=== PATIENT | female | born 1950 | race Caucasian/White ===

== ENCOUNTER 2016-12-05 09:59 | Outpatient (CLI) | payer MEDICARE | END 2016-12-05 10:00 | disposition home or self-care (01) | DX: Z79.4 Long term (current) use of insulin (principal); E78.00 Pure hypercholesterolemia, unspecified; E11.9 Type 2 diabetes mellitus without complications ==

== ENCOUNTER 2016-12-26 08:01 | Outpatient (CLI) | payer MEDICARE | END 2016-12-26 08:02 | disposition home or self-care (01) | DX: M89.9 Disorder of bone, unspecified (principal) ==

== ENCOUNTER 2017-01-11 10:58 | Outpatient (CLI) | payer MEDICARE | END 2017-01-11 10:59 | disposition home or self-care (01) | DX: Z12.31 Encounter for screening mammogram for malignant neoplasm of breast (principal) ==

== ENCOUNTER 2017-03-27 08:44 | Outpatient (CLI) | payer MEDICARE ==
[2017-03-27 15:09] LABS: BASOPHILS % (AUTO) 0.5 %; EOSINOPHILS # (AUTO) 0.2 10^3/uL (0.0-0.7); EOSINOPHILS % (AUTO) 3.1 %; HCT - HEMATOCRIT 38.7 % (37.0-47.0); LYMPHOCYTES # (AUTO) 2.9 10^3/uL (1.5-3.5); LYMPHOCYTES % (AUTO) 41.6 %; MEAN CORPUSCULAR HEMOGLOBIN 28.8 pg (27.0-31.0); MEAN CORPUSCULAR HGB CONC 33.7 g/dL (32.0-36.0); MEAN CORPUSCULAR VOLUME 85.5 fL (81.0-99.0); MONOCYTES # (AUTO) 0.4 10^3/uL (0.0-1.0); MONOCYTES % (AUTO) 5.5 %; NEUTROPHILS # (AUTO) 3.4 10^3/uL (1.5-6.6); NEUTROPHILS % (AUTO) 49.3 %; RED BLOOD COUNT 4.53 10^6/uL (4.20-5.40)
[2017-03-27 16:25] LABS: ALBUMIN/GLOBULIN RATIO 1.1 (1.0-2.2); BILIRUBIN,TOTAL 0.6 mg/dL (0.2-1.0); BUN - BLOOD UREA NITROGEN 13 mg/dL (6-20); CALCIUM 8.9 mg/dL (8.5-10.3); CARBON DIOXIDE - CO2 23 mmol/L (21-32); CHLORIDE 107 mmol/L (101-111); CHOL/HDL RATIO 4.3 (<4.4); CHOLESTEROL 160 mg/dL; CREATININE 0.9 mg/dL (0.4-1.0); GFR - MDRD 62 (>89); GLUCOSE 166 mg/dL (70-100); HDL CHOLESTEROL 37 mg/dL; LDL/HDL RATIO 2.1 (<4.4); POTASSIUM 3.8 mmol/L (3.5-5.0); SODIUM 140 mmol/L (135-145); TOTAL PROTEIN 7.3 g/dL (6.7-8.2); TRIGLYCERIDES 220 mg/dL; URIC ACID 6.6 mg/dL (2.6-7.2); VLDL CHOLESTEROL 44 mg/dL
[2017-03-27 16:31] LABS: HEMOGLOBIN A1C 0.87 g/dL
== END 2017-03-27 08:45 | disposition home or self-care (01) ==
LOC: LAB.WCP 08:44
PROVIDERS: ATTEND Physician Assistant Medical
DX: Z51.81 Encounter for therapeutic drug level monitoring (principal)
CPT/HCPCS: 36415; 80053; 80061; 82043; 83036; 84443; 84550; 85025

== ENCOUNTER 2017-06-01 09:30 | Outpatient (CLI) | payer MEDICARE ==
[2017-06-01 13:13] VITALS: BP 142/78
--- NOTE | 2017-06-01 14:18 | Nuclear Medicine Report ---
EXAM: SINGLE-ISOTOPE PHARMACOLOGICAL STRESS TEST WITH REGADENOSON. SINGLE-ISOTOPE AND ONE-DAY rest/stress M YOCARDIAL PERFUSION SCANS WITH TOMOGRAPHIC IMAGING, QUANTITATIVE ANALYSIS, WALL MOTION ANALYSIS AND C ALCULATION OF EJECTION FRACTION. EXAM DATE: 06/01/2017 11:04 AM. CLINICAL HISTORY: ARRHYTHMIA. COMPARISON: None. TECHNIQUE: After the intravenous administration of 9.8 mCi of Tc-99m sestamibi, a rest myocardial perfusion scan was done with tomography. Motion correction was applied when appropriate. A pharmacological stress was performed with the infusion of 0.4 mg regadenoson per protocol. Accordin g to protocol, 41.8 mCi of Tc-99m sestamibi was injected for stress myocardial perfusion scan. Motion correction was applied when appropriate. Gated tomographic images were obtained for wall motion analysis and computation of left ventricular e jection fraction. FINDINGS: No fixed or reversible perfusion defects are identified. No focal wall motion abnormalities. The left ventricular end-diastolic volume is 83 cc. The left ventricular end-systolic volume is 31 cc . The left ventricular ejection fraction is calculated to be 62%. IMPRESSION: 1. No scintigraphic findings to indicate myocardial ischemia. Negative for infarct. 2. Left ventricular ejection fraction of 62%. 3. Normal segmental and global wall motion. 4. Normal left ventricular cavity size, no change with stress. [facility] Referring Provider Line: [phone] SITE ID: [id number]
--- NOTE | 2017-06-01 15:11 | CARDIAC PROCEDURE NOTE ---
DATE OF SERVICE: 06/01/2017 00:00:00 PRIMARY CARE PHYSICIAN: Jeanine Rodriguez PA-C PROCEDURE: Pharmacological stress test. PROCEDURE REASON: Arrhythmia. CARDIAC RISK FACTORS: Include age, hypertension, diabetes and hyperlipidemia. No previous cardiac pro cedures. CLINICAL HISTORY: A 67-year-old female without known coronary artery disease. INITIAL RESTING VITAL SIGNS: Blood pressure 142/78, heart rate 58, height 62 inches, weight 203 pound s, BMI 37.1. PROCEDURE AND FINDINGS: The patient's identity and date verified. Consent signed. Safety stop. Pharmacologic stress testing was performed with Lexiscan at a dose of 0.4 mg over 10 seconds. The hea rt rate increased to 91 beats per minute from the infusion. Blood pressure response was normal during the stress procedure. The patient developed infusion related symptoms including chest pressure that resolved spontaneously. The resting electrocardiogram demonstrated normal sinus rhythm with nondiagno stic Q waves in the inferior leads. Maximum ST segment depression with stress was less than 0.5 mm an d upsloping. There was intermittent quadrigeminy. FINAL IMPRESSION 1. Negative electrocardiogram for ischemia in the setting of vasodilator stress. 2. Nondiagnostic stress test for angina. 3. Intermittent quadrigeminy. DISCUSSION AND RECOMMENDATIONS: Await myocardial perfusion report. JOB #: [id number] EXT JOB #:[id number]
== END 2017-06-01 09:31 | disposition home or self-care (01) ==
LOC: DI 09:30
PROVIDERS: ATTEND Family Medicine
DX: I49.9 Cardiac arrhythmia, unspecified (principal)
CPT/HCPCS: 78452; 93017; A9500

== ENCOUNTER 2017-06-21 12:43 | Outpatient (CLI) | payer MEDICARE ==
[2017-06-21 19:37] LABS: HEMOGLOBIN A1C 0.97 g/dL
[2017-06-21 19:45] LABS: ALBUMIN/GLOBULIN RATIO 1.1 (1.0-2.2); BILIRUBIN,TOTAL 0.7 mg/dL (0.2-1.0); BUN - BLOOD UREA NITROGEN 14 mg/dL (6-20); CALCIUM 9.4 mg/dL (8.5-10.3); CARBON DIOXIDE - CO2 23 mmol/L (21-32); CHLORIDE 109 mmol/L (101-111); CHOL/HDL RATIO 4.7 (<4.4); CHOLESTEROL 202 mg/dL; CREATININE 0.9 mg/dL (0.4-1.0); GFR - MDRD 62 (>89); GLUCOSE 122 mg/dL (70-100); HDL CHOLESTEROL 43 mg/dL; LDL/HDL RATIO 2.6 (<4.4); SODIUM 139 mmol/L (135-145); TOTAL PROTEIN 7.9 g/dL (6.7-8.2); TRIGLYCERIDES 231 mg/dL; VLDL CHOLESTEROL 46 mg/dL
== END 2017-06-21 12:44 | disposition home or self-care (01) ==
LOC: LAB.WCP 12:43
PROVIDERS: ATTEND Physician Assistant Medical
DX: E78.00 Pure hypercholesterolemia, unspecified (principal); Z51.81 Encounter for therapeutic drug level monitoring; Z79.899 Other long term (current) drug therapy; E11.9 Type 2 diabetes mellitus without complications
CPT/HCPCS: 36415; 80053; 80061; 83036

== ENCOUNTER 2017-06-29 11:40 | Outpatient (CLI) | payer MEDICARE ==
[2017-06-29 20:07] LABS: CALCIUM 9.3 mg/dL (8.5-10.3); MAGNESIUM 1.8 mg/dL (1.7-2.8); POTASSIUM 4.2 mmol/L (3.5-5.0)
== END 2017-06-29 11:41 | disposition home or self-care (01) ==
LOC: LAB.WCP 11:40
PROVIDERS: ATTEND Physician Assistant Medical
DX: Z51.81 Encounter for therapeutic drug level monitoring (principal); Z79.899 Other long term (current) drug therapy; R25.2 Cramp and spasm
CPT/HCPCS: 36415; 80048; 83735

== ENCOUNTER 2017-07-28 13:05 | Outpatient (CLI) | payer MEDICARE | END 2017-07-28 13:06 | disposition home or self-care (01) | LOC: LAB.WCP 13:05 | PROVIDERS: ATTEND Physician Assistant Medical | DX: Z11.59 Encounter for screening for other viral diseases (principal) | CPT/HCPCS: 36415; 86803 ==

== ENCOUNTER 2017-11-07 08:31 | Outpatient (CLI) | payer MEDICARE ==
[2017-11-07 13:20] LABS: HB2 TOTAL 14.1 g/dL; HEMOGLOBIN A1C 1.39 g/dL; HEMOGLOBIN A1C % 11.2 % (4.6-6.2)
[2017-11-07 13:27] LABS: ALBUMIN 3.7 g/dL (3.2-5.5); ALBUMIN/GLOBULIN RATIO 1.1 (1.0-2.2); ALKALINE PHOSPHATASE 83 IU/L (42-121); ALT ALANINE AMINOTRANSFERASE 19 IU/L (10-60); AST ASPARTATE AMINOTRANSFERASE 20 IU/L (10-42); BILIRUBIN,TOTAL 0.7 mg/dL (0.2-1.0); BUN - BLOOD UREA NITROGEN 13 mg/dL (6-20); CALCIUM 8.7 mg/dL (8.5-10.3); CARBON DIOXIDE - CO2 22 mmol/L (21-32); CHLORIDE 106 mmol/L (101-111); CHOL/HDL RATIO 4.6 (<4.4); CHOLESTEROL 183 mg/dL; CREATININE 0.7 mg/dL (0.4-1.0); GFR - MDRD 83 (>89); GLUCOSE 177 mg/dL (70-100); HDL CHOLESTEROL 40 mg/dL; LDL CHOLESTEROL,CALCULATED 101 mg/dL; LDL/HDL RATIO 2.5 (<4.4); SODIUM 136 mmol/L (135-145); TOTAL PROTEIN 7.2 g/dL (6.7-8.2); VLDL CHOLESTEROL 42 mg/dL
== END 2017-11-07 08:32 | disposition home or self-care (01) ==
LOC: LAB.WCP 08:31
PROVIDERS: ATTEND Physician Assistant Medical
DX: E11.9 Type 2 diabetes mellitus without complications (principal); Z51.81 Encounter for therapeutic drug level monitoring; Z79.899 Other long term (current) drug therapy
CPT/HCPCS: 36415; 80053; 80061; 83036; 83721

== ENCOUNTER 2018-02-06 08:00 | Outpatient (CLI) | payer MEDICARE ==
[2018-02-06 12:49] LABS: HB2 TOTAL 14.6 g/dL; HEMOGLOBIN A1C 1.46 g/dL; HEMOGLOBIN A1C % 11.3 % (4.6-6.2)
[2018-02-06 12:51] LABS: ALBUMIN 3.8 g/dL (3.2-5.5); ALBUMIN/GLOBULIN RATIO 1.1 (1.0-2.2); ALKALINE PHOSPHATASE 90 IU/L (42-121); ALT ALANINE AMINOTRANSFERASE 20 IU/L (10-60); AST ASPARTATE AMINOTRANSFERASE 26 IU/L (10-42); BILIRUBIN,TOTAL 0.9 mg/dL (0.2-1.0); BUN - BLOOD UREA NITROGEN 13 mg/dL (6-20); CARBON DIOXIDE - CO2 23 mmol/L (21-32); CHLORIDE 103 mmol/L (101-111); CHOLESTEROL 139 mg/dL; CREATININE 0.8 mg/dL (0.4-1.0); GFR - MDRD 71 (>89); GLUCOSE 236 mg/dL (70-100); HDL CHOLESTEROL 35 mg/dL; LDL CHOLESTEROL,CALCULATED 59 mg/dL; LDL/HDL RATIO 1.7 (<4.4); SODIUM 135 mmol/L (135-145); TOTAL PROTEIN 7.3 g/dL (6.7-8.2); VLDL CHOLESTEROL 45 mg/dL
== END 2018-02-06 08:01 | disposition home or self-care (01) ==
LOC: LAB.WCP 08:00
PROVIDERS: ATTEND Family Medicine
DX: E78.5 Hyperlipidemia, unspecified (principal); Z51.81 Encounter for therapeutic drug level monitoring; Z79.899 Other long term (current) drug therapy; E11.9 Type 2 diabetes mellitus without complications
CPT/HCPCS: 36415; 80053; 80061; 83036; 83721

== ENCOUNTER 2018-06-14 11:14 | Outpatient (CLI) | payer MEDICARE | END 2018-06-14 11:15 | disposition home or self-care (01) | LOC: NS 11:14 | PROVIDERS: ATTEND Family Medicine | DX: Z71.3 Dietary counseling and surveillance (principal); E11.9 Type 2 diabetes mellitus without complications; E78.5 Hyperlipidemia, unspecified ==

== ENCOUNTER 2018-06-21 09:41 | Outpatient (CLI) | payer MEDICARE | END 2018-06-21 09:42 | disposition home or self-care (01) | LOC: NS 09:41 | PROVIDERS: ATTEND Family Medicine | DX: Z71.3 Dietary counseling and surveillance (principal); E11.9 Type 2 diabetes mellitus without complications; E78.5 Hyperlipidemia, unspecified; Z68.38 Body mass index [BMI] 38.0-38.9, adult | CPT/HCPCS: 97802 ==

== ENCOUNTER 2018-08-28 08:00 | Outpatient (CLI) | payer MEDICARE ==
[2018-08-28 19:49] LABS: BASOPHILS % (AUTO) 0.6 %; EOSINOPHILS # (AUTO) 0.2 10^3/uL (0.0-0.7); EOSINOPHILS % (AUTO) 2.5 %; HGB - HEMOGLOBIN 13.2 g/dL (12.0-16.0); LYMPHOCYTES # (AUTO) 2.8 10^3/uL (1.5-3.5); LYMPHOCYTES % (AUTO) 41.7 %; MEAN CORPUSCULAR HEMOGLOBIN 28.5 pg (27.0-31.0); MEAN CORPUSCULAR HGB CONC 32.6 g/dL (32.0-36.0); MEAN CORPUSCULAR VOLUME 87.4 fL (81.0-99.0); MEAN PLATELET VOLUME 8.8 fL (7.9-10.8); MONOCYTES # (AUTO) 0.4 10^3/uL (0.0-1.0); MONOCYTES % (AUTO) 5.2 %; NEUTROPHILS # (AUTO) 3.4 10^3/uL (1.5-6.6); PLT - PLATELET COUNT 253 10^3/uL (130-450); RED BLOOD COUNT 4.64 10^6/uL (4.20-5.40); RED CELL DISTRIBUTION WIDTH 15.2 % (12.0-15.0); WHITE BLOOD COUNT 6.8 x10^3/uL (4.8-10.8)
[2018-08-28 20:24] LABS: ALBUMIN 3.8 g/dL (3.2-5.5); ALKALINE PHOSPHATASE 116 IU/L (42-121); ALT ALANINE AMINOTRANSFERASE 18 IU/L (10-60); AST ASPARTATE AMINOTRANSFERASE 19 IU/L (10-42); BILIRUBIN,TOTAL 0.6 mg/dL (0.2-1.0); BUN - BLOOD UREA NITROGEN 15 mg/dL (6-20); CALCIUM 8.9 mg/dL (8.5-10.3); CARBON DIOXIDE - CO2 27 mmol/L (21-32); CHLORIDE 105 mmol/L (101-111); CHOL/HDL RATIO 4.9 (<4.4); CHOLESTEROL 188 mg/dL; CREATININE 0.9 mg/dL (0.4-1.0); GFR - MDRD 62 (>89); GLUCOSE 199 mg/dL (70-100); HDL CHOLESTEROL 38 mg/dL; LDL CHOLESTEROL,CALCULATED 105 mg/dL; LDL/HDL RATIO 2.8 (<4.4); SODIUM 137 mmol/L (135-145); TOTAL PROTEIN 7.5 g/dL (6.7-8.2); VLDL CHOLESTEROL 45 mg/dL
[2018-08-28 20:29] LABS: HB2 TOTAL 13.9 g/dL; HEMOGLOBIN A1C 1.13 g/dL; HEMOGLOBIN A1C % 9.6 % (4.6-6.2)
== END 2018-08-28 23:59 | disposition home or self-care (01) ==
LOC: LAB.WCP 08:00
PROVIDERS: ATTEND Family Medicine
DX: I10 Essential (primary) hypertension (principal); E78.5 Hyperlipidemia, unspecified; E11.9 Type 2 diabetes mellitus without complications
CPT/HCPCS: 36415; 80053; 80061; 82043; 83036; 83721; 85025

== ENCOUNTER 2018-11-13 09:44 | Outpatient (CLI) | payer MEDICARE ==
[2018-11-13 12:54] LABS: BASOPHILS % (AUTO) 0.6 %; EOSINOPHILS # (AUTO) 0.2 10^3/uL (0.0-0.7); EOSINOPHILS % (AUTO) 2.7 %; HGB - HEMOGLOBIN 12.5 g/dL (12.0-16.0); LYMPHOCYTES # (AUTO) 2.2 10^3/uL (1.5-3.5); LYMPHOCYTES % (AUTO) 39.8 %; MEAN CORPUSCULAR HEMOGLOBIN 29.9 pg (27.0-31.0); MEAN CORPUSCULAR HGB CONC 34.2 g/dL (32.0-36.0); MEAN CORPUSCULAR VOLUME 87.4 fL (81.0-99.0); MEAN PLATELET VOLUME 8.7 fL (7.9-10.8); MONOCYTES # (AUTO) 0.3 10^3/uL (0.0-1.0); MONOCYTES % (AUTO) 6.1 %; NEUTROPHILS # (AUTO) 2.8 10^3/uL (1.5-6.6); NEUTROPHILS % (AUTO) 50.8 %; PLT - PLATELET COUNT 253 10^3/uL (130-450); RED BLOOD COUNT 4.18 10^6/uL (4.20-5.40); RED CELL DISTRIBUTION WIDTH 15.8 % (12.0-15.0); WHITE BLOOD COUNT 5.6 x10^3/uL (4.8-10.8)
[2018-11-13 13:04] LABS: ALBUMIN 3.9 g/dL (3.2-5.5); ALBUMIN/GLOBULIN RATIO 1.1 (1.0-2.2); ALKALINE PHOSPHATASE 77 IU/L (42-121); ALT ALANINE AMINOTRANSFERASE 19 IU/L (10-60); AST ASPARTATE AMINOTRANSFERASE 18 IU/L (10-42); BUN - BLOOD UREA NITROGEN 16 mg/dL (6-20); CALCIUM 8.9 mg/dL (8.5-10.3); CARBON DIOXIDE - CO2 27 mmol/L (21-32); CHLORIDE 106 mmol/L (101-111); CHOL/HDL RATIO 1.7 (<4.4); CHOLESTEROL 96 mg/dL; CREATININE 0.9 mg/dL (0.4-1.0); GFR - MDRD 62 (>89); GLUCOSE 104 mg/dL (70-100); HDL CHOLESTEROL 58 mg/dL; LDL CHOLESTEROL,CALCULATED 21 mg/dL; LDL/HDL RATIO 0.4 (<4.4); SODIUM 141 mmol/L (135-145); TOTAL PROTEIN 7.3 g/dL (6.7-8.2); URIC ACID 4.8 mg/dL (2.6-7.2); VLDL CHOLESTEROL 17 mg/dL
[2018-11-13 13:37] LABS: HB2 TOTAL 13.3 g/dL; HEMOGLOBIN A1C 0.91 g/dL; HEMOGLOBIN A1C % 8.4 % (4.6-6.2)
== END 2018-11-13 09:45 | disposition home or self-care (01) ==
LOC: LAB.WCP 09:44
PROVIDERS: ATTEND Family Medicine
DX: I10 Essential (primary) hypertension (principal); M17.9 Osteoarthritis of knee, unspecified; E11.9 Type 2 diabetes mellitus without complications; E78.5 Hyperlipidemia, unspecified
CPT/HCPCS: 36415; 80053; 80061; 83036; 83721; 84550; 85025

== ENCOUNTER 2019-02-05 10:35 | Outpatient (CLI) | payer MEDICARE ==
[2019-02-05 12:42] LABS: BASOPHILS % (AUTO) 0.5 %; EOSINOPHILS # (AUTO) 0.2 10^3/uL (0.0-0.7); EOSINOPHILS % (AUTO) 2.7 %; HGB - HEMOGLOBIN 12.5 g/dL (12.0-16.0); LYMPHOCYTES # (AUTO) 2.4 10^3/uL (1.5-3.5); LYMPHOCYTES % (AUTO) 38.2 %; MEAN CORPUSCULAR HEMOGLOBIN 30.1 pg (27.0-31.0); MEAN CORPUSCULAR VOLUME 88.6 fL (81.0-99.0); MEAN PLATELET VOLUME 8.8 fL (7.9-10.8); MONOCYTES # (AUTO) 0.3 10^3/uL (0.0-1.0); MONOCYTES % (AUTO) 5.4 %; NEUTROPHILS # (AUTO) 3.4 10^3/uL (1.5-6.6); NEUTROPHILS % (AUTO) 53.2 %; PLT - PLATELET COUNT 252 10^3/uL (130-450); RED BLOOD COUNT 4.14 10^6/uL (4.20-5.40); RED CELL DISTRIBUTION WIDTH 13.5 % (12.0-15.0); WHITE BLOOD COUNT 6.4 x10^3/uL (4.8-10.8)
[2019-02-05 13:27] LABS: ALBUMIN 3.9 g/dL (3.2-5.5); ALBUMIN/GLOBULIN RATIO 1.1 (1.0-2.2); ALKALINE PHOSPHATASE 97 IU/L (42-121); ALT ALANINE AMINOTRANSFERASE 20 IU/L (10-60); AST ASPARTATE AMINOTRANSFERASE 21 IU/L (10-42); BILIRUBIN,TOTAL 0.7 mg/dL (0.2-1.0); BUN - BLOOD UREA NITROGEN 21 mg/dL (6-20); CALCIUM 8.9 mg/dL (8.5-10.3); CARBON DIOXIDE - CO2 24 mmol/L (21-32); CHLORIDE 106 mmol/L (101-111); CHOL/HDL RATIO 2.4 (<4.4); CHOLESTEROL 111 mg/dL; CREATININE 0.8 mg/dL (0.4-1.0); GFR - MDRD 71 (>89); GLUCOSE 197 mg/dL (70-100); HDL CHOLESTEROL 47 mg/dL; LDL CHOLESTEROL,CALCULATED 43 mg/dL; LDL/HDL RATIO 0.9 (<4.4); SODIUM 138 mmol/L (135-145); TOTAL PROTEIN 7.6 g/dL (6.7-8.2); VLDL CHOLESTEROL 21 mg/dL
[2019-02-05 13:31] LABS: HB2 TOTAL 13.5 g/dL; HEMOGLOBIN A1C 1.13 g/dL; HEMOGLOBIN A1C % 9.8 % (4.6-6.2)
== END 2019-02-05 23:59 | disposition home or self-care (01) ==
LOC: LAB.WCP 10:35
PROVIDERS: ATTEND Family Medicine
DX: I10 Essential (primary) hypertension (principal); E78.5 Hyperlipidemia, unspecified; E11.9 Type 2 diabetes mellitus without complications
CPT/HCPCS: 36415; 80053; 80061; 83036; 83721; 85025

== ENCOUNTER 2019-05-06 08:00 | Outpatient (CLI) | payer MEDICARE ==
[2019-05-06 12:22] LABS: BASOPHILS % (AUTO) 0.6 %; EOSINOPHILS # (AUTO) 0.2 10^3/uL (0.0-0.7); HGB - HEMOGLOBIN 12.5 g/dL (12.0-16.0); LYMPHOCYTES # (AUTO) 2.8 10^3/uL (1.5-3.5); LYMPHOCYTES % (AUTO) 40.1 %; MEAN CORPUSCULAR HEMOGLOBIN 29.8 pg (27.0-31.0); MEAN CORPUSCULAR HGB CONC 32.9 g/dL (32.0-36.0); MEAN CORPUSCULAR VOLUME 90.7 fL (81.0-99.0); MEAN PLATELET VOLUME 10.6 fL (7.9-10.8); MONOCYTES # (AUTO) 0.4 10^3/uL (0.0-1.0); MONOCYTES % (AUTO) 5.5 %; NEUTROPHILS # (AUTO) 3.5 10^3/uL (1.5-6.6); NEUTROPHILS % (AUTO) 50.4 %; PLT - PLATELET COUNT 281 10^3/uL (130-450); RED BLOOD COUNT 4.19 10^6/uL (4.20-5.40); RED CELL DISTRIBUTION WIDTH 13.8 % (12.0-15.0); WHITE BLOOD COUNT 6.9 x10^3/uL (4.8-10.8)
[2019-05-06 13:03] LABS: HB2 TOTAL 13.3 g/dL; HEMOGLOBIN A1C 0.97 g/dL; HEMOGLOBIN A1C % 8.8 % (4.6-6.2)
[2019-05-06 13:09] LABS: ALBUMIN 3.8 g/dL (3.2-5.5); ALKALINE PHOSPHATASE 85 IU/L (42-121); ALT ALANINE AMINOTRANSFERASE 20 IU/L (10-60); AST ASPARTATE AMINOTRANSFERASE 21 IU/L (10-42); BILIRUBIN,TOTAL 0.6 mg/dL (0.2-1.0); BUN - BLOOD UREA NITROGEN 15 mg/dL (6-20); CALCIUM 9.2 mg/dL (8.5-10.3); CARBON DIOXIDE - CO2 24 mmol/L (21-32); CHLORIDE 109 mmol/L (101-111); CHOL/HDL RATIO 2.2 (<4.4); CHOLESTEROL 97 mg/dL; CREATININE 0.9 mg/dL (0.4-1.0); GFR - MDRD 62 (>89); GLUCOSE 128 mg/dL (70-100); HDL CHOLESTEROL 44 mg/dL; LDL CHOLESTEROL,CALCULATED 32 mg/dL; LDL/HDL RATIO 0.7 (<4.4); SODIUM 141 mmol/L (135-145); TOTAL PROTEIN 7.7 g/dL (6.7-8.2); VLDL CHOLESTEROL 21 mg/dL
== END 2019-05-06 23:59 | disposition home or self-care (01) ==
LOC: LAB.WCP 08:00
PROVIDERS: ATTEND Family Medicine
DX: I10 Essential (primary) hypertension (principal); E78.5 Hyperlipidemia, unspecified; E11.9 Type 2 diabetes mellitus without complications
CPT/HCPCS: 36415; 80053; 80061; 83036; 83721; 85025

== ENCOUNTER 2019-07-30 09:00 | Outpatient (CLI) | payer MEDICARE ==
[2019-07-30 13:11] LABS: CREATININE 0.9 mg/dL (0.4-1.0)
[2019-07-30 13:27] LABS: HEMOGLOBIN A1C 0.81 g/dL; HEMOGLOBIN A1C % 8.3 % (4.6-6.2)
== END 2019-07-30 09:01 | disposition home or self-care (01) ==
LOC: LAB.WCP 09:00
PROVIDERS: ATTEND Physician Assistant Medical
DX: E11.9 Type 2 diabetes mellitus without complications (principal)
CPT/HCPCS: 36415; 80048; 83036

== ENCOUNTER 2019-10-05 17:15 | Emergency (ER) | payer MEDICARE ==
--- NOTE | 2019-10-05 17:32 | ED Physician Documentation ---
History of Present Illness - Stated complaint Stated Complaint: BACK/NAUSEA - Chief complaint Chief Complaint: Back Pain - Additonal information Additional information: This is a 69-year-old female with a history of hypertension, high cholesterol, type 2 diabetes, cholecystectomy, who presents with left-sided chest/back pain. Patient states that she was sitting and resting earlier in the day and at around 15:30 she began developing some pain in her left scapula radiating towards her left breast, it has been fairly constant since then. It is worse when she presses on her back, and when she twists in certain directions. She did have s ome nausea as well. No diaphoresis, syncope, palpitations. She has had a nuclear stress test in the last several years and was told it looks good. She denies any known cardiac history, no history of [place]. She can find an area in her back that is focally tender to palpation. no history of trauma. No history of blood clots, no leg swelling, no redness, no fever, no shortness of breath Review of Systems Constitutional: denies: Fever Throat: denies: Dental pain / toothache Cardiac: reports: Chest pain / pressure Respiratory: denies: Dyspnea GI: denies: Abdominal Pain : denies: Dysuria Skin: denies: Rash Neurologic: denies: Generalized weakness Immunocompromised: denies: Immunocompromised PD PAST MEDICAL HISTORY - Past Medical History Cardiovascular: Hypertension, High cholesterol Respiratory: None Endocrine/Autoimmune: Type 2 diabetes GI: GERD : None Psych: None Musculoskeletal: Osteoarthritis, Gout Derm: Eczema - Past Surgical History Past Surgical History: Yes General: Cholecystectomy, Appendectomy, Other /[employer]: section, Tubal ligation - Present Medications Home Medications: Ambulatory Orders Medication Instructions Recorded Confirmed Insulin Aspart [Novolog] 0 - 20 unit SQ ACHS 07/11/14 06/14/18 Insulin Glargine [Lantus Solostar] 27 unit SUBQ BID 07/11/14 06/14/18 Metformin HCl 500 mg PO BID 07/11/14 06/14/18 Ascorbic Acid [Vitamin C] 500 mg PO DAILY 12/15/16 06/14/18 Atorvastatin Calcium 80 mg PO QPM 12/15/16 06/14/18 Losartan [Cozaar] 100 mg PO DAILY 12/15/16 06/14/18 Cholecalciferol (Vitamin D3) 1,000 unit PO DAILY 06/14/18 06/14/18 [Vitamin D3] Hydrochlorothiazide 12.5 mg PO DAILY 06/14/18 06/14/18 Pioglitazone [Actos] 15 mg PO DAILY 06/14/18 06/14/18 amLODIPine [Norvasc] 5 mg PO ONCE 06/14/18 06/14/18 - Allergies Allergies/Adverse Reactions: Allergies Allergy/AdvReac Type Severity Reaction Status Date / Time alprazolam AdvReac Severe Unknown Verified 10/05/19 17:20 aspirin AdvReac Intermediate Unknown Verified 10/05/19 17:20 codeine [From Guaifen-C] AdvReac Unknown Verified 10/05/19 17:20 [email or web address] [From Guaifen-C] AdvReac Unknown Verified 10/05/19 17:20 - Social History Does the pt smoke?: No Smoking Status: Never smoker Does the pt drink ETOH?: No Does the pt have substance abuse?: No PD ED PE NORMAL - Vitals Vital signs reviewed: Yes - General General: Alert and oriented X 3, Other (Very well-appearing, sitting up in bed, joking and laughing with her family) - HEENT HEENT: Atraumatic, PERRL - Neck Neck: Supple, no meningeal sign - Cardiac Cardiac: RRR, No murmur - Respiratory Respiratory: No respiratory distress, Clear bilaterally - Abdomen Abdomen: Soft, Non tender, Non distended - Back Back: Other (Atraumatic in appearance, over the left posterior chest wall there is focal tenderness, with no crepitus.) - Derm Derm: Warm and dry - Extremities Extremities: No deformity - Neuro Neuro: Alert and oriented X 3 - Psych Psych: Normal mood, Normal affect Results - Vitals Vitals: Vital Signs - 24 hr 10/05/19 10/05/19 10/05/19 17:20 18:13 20:09 Temperature 36.8 C 37 C Heart Rate 63 60 59 L Respiratory 18 16 17 Rate Blood Pressure 174/70 H 173/65 H 146/47 H O2 Saturation 97 99 100 10/05/19 21:50 Temperature 36.7 C Heart Rate 60 Respiratory 15 Rate Blood Pressure 133/49 H O2 Saturation 96 Oxygen O2 Source Room air - EKG (time done) 17:42 Other comments: Other comments (Rate 59, rhythm sinus, there is no ST segment elevation or depression, no abnormal T wave inversions. Early transition in the R waves.) - Labs Labs: Laboratory Tests 10/05/19 10/05/19 10/05/19 17:55 17:55 17:55 WBC 7.0 RBC 4.33 Hgb 12.5 Hct 38.7 MCV 89.4 MCH 28.9 MCHC 32.3 RDW 13.9 Plt Count 298 MPV 10.0 Neut # (Auto) 3.6 Lymph # (Auto) 2.8 [place] # (Auto) 0.4 Eos # (Auto) 0.2 Baso # (Auto) 0.0 Absolute Nucleated RBC 0.00 Nucleated RBC % 0.0 Sodium 139 Potassium 3.8 Chloride 105 Carbon Dioxide 25 Anion Gap 9.0 BUN 16 Creatinine 0.9 Estimated GFR (MDRD) 62 L Glucose 165 H Calcium 9.4 Total Bilirubin 0.4 AST 22 ALT 22 Alkaline Phosphatase 90 Troponin I High Sens 2.7 B-Natriuretic Peptide Total Protein 8.0 Albumin 4.0 Globulin 4.0 Albumin/Globulin Ratio 1.0 Lipase 58 H 10/05/19 10/05/19 17:55 20:40 WBC RBC Hgb Hct MCV MCH MCHC RDW Plt Count MPV Neut # (Auto) Lymph # (Auto) [place] # (Auto) Eos # (Auto) Baso # (Auto) Absolute Nucleated RBC Nucleated RBC % Sodium Potassium Chloride Carbon Dioxide Anion Gap BUN Creatinine Estimated GFR (MDRD) Glucose Calcium Total Bilirubin AST ALT Alkaline Phosphatase Troponin I High Sens < 2.3 L B-Natriuretic Peptide 17 Total Protein Albumin Globulin Albumin/Globulin Ratio Lipase - Rads (name of study) CXR Radiology: Other (No acute cardiopulmonary findings) PD MEDICAL DECISION MAKING - ED course Complexity details: considered differential (ACS, pneumonia, pneumothorax, pleural effusion, pulmonary embolism, dysrhythmia, musculoskeletal pain, dissection) ED course: On arrival patient is well-appearing, she is a bit hypertensive otherwise vitals are unremarkable. Physical exam reveals some focal tenderness on her back in the area of soreness, but she denies any history of trauma. Her chest x-ray is unremarkable. EKG shows no signs of ischemia or dysrhythmia, there was a little bit of baseline wander in some of the precordial leads that led to questionable slight depression on one beat only, but on examination this is due to motion artifact, which is confirmed on the repeat EKG which again shows no signs of ischemia or dysrhythmia. Labs are drawn her blood counts are normal, abdominal panel is unremarkable other than very slightly elevated lipase which is less likely to be the cause of her symptoms given she has no abdominal tenderness, 2 high-sensitivity troponins are both negative and there were drawn 3 hours apart. She has no signs of DVT, leg swelling no history of blood clot, no pleuritic pain, no hypoxia, no tachycardia, no immobilization, or history of cancer, no signs of pulmonary embolism today. Her pain is also not consistent with aortic dissection, given she has focal reproducible tenderness, and her pain is quite mild at this time. Her blood pressure also improved to near normal range. I had an in-depth discussion with the patient about her cardiac risk factors, and the fact that her labs being normal at this time does not completely rule out cardiac disease. Patient will be able to have close follow-up with her primary care provider, she would not like to be hospitalized at this time, and given her reassuring labs, the fact that she is feeling better and that her pain is reproducible with palpation and movement, I feel close outpatient follow up is reasonable. This would be a highly atypical presentation for ACS, especially With 2 normal EKGs and HS troponins. After discussion once again of return precautions and follow-up instructions, patient was discharged home in the care of family Departure - Departure Disposition: 01 Home, Self Care Clinical Impression: Chest discomfort Condition: Good Instructions: ED Chest Pain Atypical Unkn Cause Follow-Up: Ros Simpson PA-C [Primary Care Provider] - Within 3 Days Comments: He was seen today for some discomfort in your back as well as your chest. Your high-sensitivity cardiac enzymes were both normal, your EKGs did not show signs of any obvious heart problems, your x-ray and labs were reassuring. I am glad that you are feeling a bit better. I do not know the exact cause of your pain, it is possible that this is related to some muscle strain. It is important that you follow-up with your primary care provider, and if you are having any worsening symptoms, such as worsening chest pain, nausea/vomiting, pain radiating to your jaw or down your arms, shortness of breath, leg swelling, return to the emergency department. You may take ibuprofen and Tylenol for your discomfort. Discharge Date/Time: 10/05/19 21:54
[2019-10-05 18:01] LABS: BASOPHILS % (AUTO) 0.4 %; EOSINOPHILS # (AUTO) 0.2 10^3/uL (0.0-0.7); EOSINOPHILS % (AUTO) 2.1 %; HGB - HEMOGLOBIN 12.5 g/dL (12.0-16.0); LYMPHOCYTES # (AUTO) 2.8 10^3/uL (1.5-3.5); LYMPHOCYTES % (AUTO) 39.3 %; MEAN CORPUSCULAR HEMOGLOBIN 28.9 pg (27.0-31.0); MEAN CORPUSCULAR HGB CONC 32.3 g/dL (32.0-36.0); MEAN CORPUSCULAR VOLUME 89.4 fL (81.0-99.0); MONOCYTES # (AUTO) 0.4 10^3/uL (0.0-1.0); NEUTROPHILS # (AUTO) 3.6 10^3/uL (1.5-6.6); NEUTROPHILS % (AUTO) 51.6 %; PLT - PLATELET COUNT 298 10^3/uL (130-450); RED BLOOD COUNT 4.33 10^6/uL (4.20-5.40); RED CELL DISTRIBUTION WIDTH 13.9 % (12.0-15.0)
[2019-10-05 18:14] LABS: BILIRUBIN,TOTAL 0.4 mg/dL (0.2-1.0); CALCIUM 9.4 mg/dL (8.5-10.3); CREATININE 0.9 mg/dL (0.4-1.0)
--- NOTE | 2019-10-05 18:38 | XRAY Report ---
Reason: L chest/back pain Procedure Date: 10/05/2019 Accession Number: [id number] / [id number] Procedure: XR - Chest 2 View X-Ray CPT Code: 96034 Final Report FULL RESULT: EXAM: CHEST RADIOGRAPHY EXAM DATE: 10/05/2019 06:14 PM. CLINICAL HISTORY: L chest/back pain. COMPARISON: XR CHEST PA AND LAT 06/06/2011 9:56 AM. TECHNIQUE: 2 views. FINDINGS: Cardiac leads overlie the chest. Heart size is normal. Calcified plaque in the aortic arch. No consolidation, pleural effusion, or pneumothorax. Surgical clips project over the right upper abdominal quadrant. IMPRESSION: No acute cardiopulmonary findings. [facility]
[2019-10-05 21:51] VITALS: BP 133/49
== END 2019-10-05 21:54 | disposition home or self-care (01) ==
LOC: ED 17:15
DX: R07.89 Other chest pain (principal); M54.9 Dorsalgia, unspecified; I10 Essential (primary) hypertension; E78.00 Pure hypercholesterolemia, unspecified; E11.9 Type 2 diabetes mellitus without complications; Z79.4 Long term (current) use of insulin
CPT/HCPCS: 36415; 71046; 80053; 83690; 83880; 84484; 85025; 93005; 99284

== ENCOUNTER 2019-10-11 15:16 | Emergency (ER) | payer MEDICARE ==
[2019-10-11] MEDS ORDERED: SODIUM CHLORIDE 0.9% 1,000 ML IV ONE (16:01)
--- NOTE | 2019-10-11 16:02 | ED Physician Documentation ---
PD HPI CHEST PAIN - Stated complaint Stated Complaint: ELEVATED HR - Chief complaint Chief Complaint: Cardiac - History obtained from History obtained from: Patient - History of Present Illness Timing - onset: Other (On Monday she was diagnosed with shingles, she is now on gabapentin and acyclovir, no steroids. The next day she noticed when she took her routine vital signs in the morning that her heart rate was about [address] ever since. She has mild shortness of breath but denies chest pain or pressure. No other new medications. No pedal edema or calf pain.) Review of Systems Ten Systems: 10 systems reviewed and negative Constitutional: denies: Fever, Chills, Fatigue Cardiac: denies: Chest pain / pressure, Palpitations Respiratory: reports: Dyspnea. 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 HEENT: Cataracts - Present Medications Home Medications: Ambulatory Orders Medication Instructions Recorded Confirmed Insulin Aspart [Novolog] 0 - 20 unit SQ ACHS 07/11/14 06/14/18 Insulin Glargine [Lantus Solostar] 27 unit SUBQ BID 07/11/14 06/14/18 Metformin HCl 500 mg PO BID 07/11/14 06/14/18 Ascorbic Acid [Vitamin C] 500 mg PO DAILY 12/15/16 06/14/18 Atorvastatin Calcium 80 mg PO QPM 12/15/16 06/14/18 Losartan [Cozaar] 100 mg PO DAILY 12/15/16 06/14/18 Cholecalciferol (Vitamin D3) 1,000 unit PO DAILY 06/14/18 06/14/18 [Vitamin D3] Pioglitazone [Actos] 15 mg PO DAILY 06/14/18 06/14/18 amLODIPine [Norvasc] 5 mg PO ONCE 06/14/18 06/14/18 Gabapentin 300 mg PO 10/11/19 Valacyclovir HCl [Valacyclovir] 1,000 mg PO 10/11/19 - Allergies Allergies/Adverse Reactions: Allergies Allergy/AdvReac Type Severity Reaction Status Date / Time alprazolam AdvReac Severe Unknown Verified 10/11/19 15:52 aspirin AdvReac Intermediate Unknown Verified 10/11/19 15:52 codeine [From Guaifen-C] AdvReac Unknown Verified 10/11/19 15:52 [email or web address] [From Guaifen-C] AdvReac Unknown Verified 10/11/19 15:52 - Social History Does the pt smoke?: No Smoking Status: Never smoker Does the pt drink ETOH?: No Does the pt have substance abuse?: No - Immunizations Immunizations are current?: No - POLST Patient has POLST: No PD ED PE NORMAL - Vitals Vital signs reviewed: Yes - General General: Alert and oriented X 3, No acute distress - HEENT HEENT: PERRL, EOMI - Neck Neck: Supple, no meningeal sign, No bony TTP - Cardiac Cardiac: Other (Shingles rash sternum and over to the left; mild tachycardia.) - Respiratory Respiratory: No respiratory distress, Clear bilaterally - Abdomen Abdomen: Non tender - Back Back: No CVA TTP, No spinal TTP - Derm Derm: Normal color, Warm and dry - Extremities Extremities: No edema, No calf tenderness / cord - Neuro Neuro: Alert and oriented X 3, Normal speech Results - Vitals Vitals: Vital Signs - 24 hr 10/11/19 10/11/19 15:18 15:35 Temperature 37.1 C Heart Rate 112 H 110 H Respiratory 18 22 Rate Blood Pressure 144/78 H 140/89 H O2 Saturation 94 97 Oxygen O2 Source Room air - EKG (time done) 1522 Rate: Rate (enter#) (112) Rhythm: Sinus tachycardia [place]: Normal Intervals: Normal [place] QRS: LVH Ischemia: Non specific changes. No: ST elevation c/w ischemia, ST depression Computer interpretation: Agree with computer - Labs Labs: Laboratory Tests 10/11/19 10/11/19 10/11/19 16:17 16:17 16:17 WBC 7.7 RBC 4.40 Hgb 12.6 Hct 38.6 MCV 87.7 MCH 28.6 MCHC 32.6 RDW 13.6 Plt Count 264 MPV 10.0 Neut # (Auto) 4.0 Lymph # (Auto) 2.9 [place] # (Auto) 0.7 Eos # (Auto) 0.1 Baso # (Auto) 0.0 Absolute Nucleated RBC 0.00 Band Neuts % (Manual) Not Reportable Abnorm Lymph % (Manual) Not Reportable Nucleated RBC % 0.0 Neutrophils # (Manual) Not Reportable Lymphocytes # (Manual) Not Reportable Monocytes # (Manual) Not Reportable Eosinophils # (Manual) Not Reportable Basophils # (Manual) Not Reportable Differential Comment MANUAL=AUTO DIFF Manual Slide Review Indicated Platelet Estimate NORMAL (130-450,000) Platelet Morphology NORMAL APPEARANCE RBC Morph Micro Appear NORMAL APPEARANCE D-Dimer Sodium 135 Potassium 3.7 Chloride 102 Carbon Dioxide 21 Anion Gap 12.0 BUN 27 H Creatinine 1.0 Estimated GFR (MDRD) 55 L Glucose 135 H Calcium 9.1 Total Bilirubin 0.8 AST 24 ALT 22 Alkaline Phosphatase 73 Troponin I High Sens 3.9 Total Protein 7.9 Albumin 3.9 Globulin 4.0 Albumin/Globulin Ratio 1.0 Lipase 42 10/11/19 16:17 WBC RBC Hgb Hct MCV MCH MCHC RDW Plt Count MPV Neut # (Auto) Lymph # (Auto) [place] # (Auto) Eos # (Auto) Baso # (Auto) Absolute Nucleated RBC Band Neuts % (Manual) Abnorm Lymph % (Manual) Nucleated RBC % Neutrophils # (Manual) Lymphocytes # (Manual) Monocytes # (Manual) Eosinophils # (Manual) Basophils # (Manual) Differential Comment Manual Slide Review Platelet Estimate Platelet Morphology RBC Morph Micro Appear D-Dimer 288.4 H Sodium Potassium Chloride Carbon Dioxide Anion Gap BUN Creatinine Estimated GFR (MDRD) Glucose Calcium Total Bilirubin AST ALT Alkaline Phosphatase Troponin I High Sens Total Protein Albumin Globulin Albumin/Globulin Ratio Lipase - Rads (name of study) 1v chest Radiology: EMP read contemporaneously (Normal) PD MEDICAL DECISION MAKING - ED course ED course: 69-year-old woman presents with tachycardia, some dizziness. Recent diagnosis of shingles. Note made of the d-dimer, this is still minimally elevated that especially in a 69-year-old I think we can use an age-adjusted cut off and call it normal for age. Especially given the otherwise atypical symptoms and more likely alternative diagnosis of dehydration with elevated BUN in the setting of a viral illness. She felt better and her vitals normalized after IV fluids. Departure - Departure Disposition: 01 Home, Self Care Clinical Impression: Tachycardia, Dehydration Condition: Good Record reviewed to determine appropriate education?: Yes Instructions: ED Dehydration Comments: Your seen today because your heart rate was high, it seems based on the test result that is likely that this is due from mild dehydration for which she received 2 L of IV fluids. Drink plenty fluids and return for new or worsening symptoms. Follow-up with your doctor next week.
--- NOTE | 2019-10-11 16:16 | XRAY Report ---
Reason: Chest pain Procedure Date: 10/11/2019 Accession Number: [id number] / [id number] Procedure: XR - Chest 1 View X-Ray CPT Code: 29660 Final Report FULL RESULT: EXAM: CHEST RADIOGRAPHY EXAM DATE: 10/11/2019 04:06 PM. CLINICAL HISTORY: Chest pain. COMPARISON: CHEST 2 VIEW 10/05/2019 5:55 PM. TECHNIQUE: 1 view. FINDINGS: Lungs/Pleura: No focal opacities evident. No pleural effusion. No pneumothorax. Mediastinum: Within exam limitations, the cardiomediastinal contour is normal. Other: None. IMPRESSION: Normal single view chest. [facility]
[2019-10-11 16:27] LABS: BASOPHILS % (AUTO) 0.3 %; EOSINOPHILS # (AUTO) 0.1 10^3/uL (0.0-0.7); EOSINOPHILS % (AUTO) 1.2 %; HGB - HEMOGLOBIN 12.6 g/dL (12.0-16.0); LYMPHOCYTES # (AUTO) 2.9 10^3/uL (1.5-3.5); LYMPHOCYTES % (AUTO) 37.1 %; MEAN CORPUSCULAR HEMOGLOBIN 28.6 pg (27.0-31.0); MEAN CORPUSCULAR HGB CONC 32.6 g/dL (32.0-36.0); MEAN CORPUSCULAR VOLUME 87.7 fL (81.0-99.0); MONOCYTES # (AUTO) 0.7 10^3/uL (0.0-1.0); MONOCYTES % (AUTO) 9.3 %; NEUTROPHILS % (AUTO) 51.7 %; PLT - PLATELET COUNT 264 10^3/uL (130-450); RED CELL DISTRIBUTION WIDTH 13.6 % (12.0-15.0); WHITE BLOOD COUNT 7.7 x10^3/uL (4.8-10.8)
[2019-10-11 16:39] LABS: ALBUMIN 3.9 g/dL (3.2-5.5); BILIRUBIN,TOTAL 0.8 mg/dL (0.2-1.0); CALCIUM 9.1 mg/dL (8.5-10.3); TOTAL PROTEIN 7.9 g/dL (6.7-8.2)
[2019-10-11] MEDS ORDERED: LACTATED RINGERS 1,000 ML IV STA (16:40)
[2019-10-11 16:57] LABS: DIFFERENTIAL COMMENT MANUAL=AUTO DIFF; PLATELET ESTIMATE, MANUAL NORMAL (130-450,000) (NORMAL); PLATELET MORPHOLOGY NORMAL APPEARANCE (NORMAL); RBC MORPHOLOGY (MULTIPLE) NORMAL APPEARANCE (NORMAL)
[2019-10-11 18:49] VITALS: BP 131/59
== END 2019-10-11 19:00 | disposition home or self-care (01) ==
LOC: ED 15:16
DX: E86.0 Dehydration (principal); I10 Essential (primary) hypertension; E11.9 Type 2 diabetes mellitus without complications; Z79.4 Long term (current) use of insulin
CPT/HCPCS: 36415; 71045; 80053; 83690; 84484; 85025; 85379; 93005; 99284; J7120

== ENCOUNTER 2019-10-29 10:01 | Outpatient (CLI) | payer MEDICARE ==
[2019-10-29 12:28] LABS: HB2 TOTAL 11.6 g/dL; HEMOGLOBIN A1C 0.8 g/dL; HEMOGLOBIN A1C % 8.5 % (4.6-6.2)
[2019-10-29 12:45] LABS: ALBUMIN 3.7 g/dL (3.2-5.5); ALBUMIN/GLOBULIN RATIO 0.9 (1.0-2.2); ALKALINE PHOSPHATASE 70 IU/L (42-121); ALT ALANINE AMINOTRANSFERASE 18 IU/L (10-60); AST ASPARTATE AMINOTRANSFERASE 19 IU/L (10-42); BILIRUBIN,TOTAL 0.5 mg/dL (0.2-1.0); BUN - BLOOD UREA NITROGEN 15 mg/dL (6-20); CALCIUM 8.9 mg/dL (8.5-10.3); CARBON DIOXIDE - CO2 26 mmol/L (21-32); CHLORIDE 107 mmol/L (101-111); CHOL/HDL RATIO 2.5 (<4.4); CHOLESTEROL 103 mg/dL; CREATININE 0.9 mg/dL (0.4-1.0); GFR - MDRD 62 (>89); GLUCOSE 104 mg/dL (70-100); HDL CHOLESTEROL 41 mg/dL; LDL CHOLESTEROL,CALCULATED 44 mg/dL; LDL/HDL RATIO 1.1 (<4.4); SODIUM 140 mmol/L (135-145); TOTAL PROTEIN 7.6 g/dL (6.7-8.2); VLDL CHOLESTEROL 18 mg/dL
[2019-10-29 19:37] LABS: CREATININE,URINE 120.1 mg/dL; MICROALBUM/CREATININE RATIO,UR 2.5 ug/mg (<30.0); MICROALBUMIN,URINE 0.3 mg/dL (0-300.0)
== END 2019-10-29 23:59 | disposition home or self-care (01) ==
LOC: LAB.WCP 10:01
PROVIDERS: ATTEND Physician Assistant Medical
DX: E11.9 Type 2 diabetes mellitus without complications (principal)
CPT/HCPCS: 36415; 80053; 80061; 82043; 82570; 83036; 83721; 84443

== ENCOUNTER 2019-11-16 20:30 | Emergency (ER) | payer MEDICARE ==
[2019-11-16] MEDS ORDERED: predniSONE 20 MG TABLET PO STA (21:25)
--- NOTE | 2019-11-16 21:29 | ED Physician Documentation ---
PD HPI FOCAL NEURO - Stated complaint Stated Complaint: LT SIDE FACE DROOPING, RT SIDE FACE SWELLING - Chief complaint Chief Complaint: Neuro - History obtained from History obtained from: Patient, Family - Additional information Additional information: Patient comes emergency department complaining of left-sided facial droop that is come on gradually over the course of the day. Patient states that she has not had any other focal neurologic deficits. She states that she has not had any weakness in her arms or legs. No numbness or tingling.Visual changes. No effusion. She has been able to speak fairly clearly, although the facial droop has made Her speech a little bit unclear. Patient states that she has not been obviously ill with anything recently, though she did notice some facial swelling for the last few days on the right. She went and saw her Dr. Markham for this and was started on amoxicillin. She is not sure what the amoxicillin is for. She does not have any dental pain and denies ear pain. No auditory changes.Patient states that she has not been running any fevers. 2 of her granddaughters who live at home with her are both ill with upper respiratory type illnesses. 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 She states that her right side never fully recovered from the last episode. No other complaints at this time. Review of Systems Ten Systems: 10 systems reviewed and negative Constitutional: reports: Reviewed and negative Eyes: reports: Reviewed and negative Ears: reports: Reviewed and negative Nose: reports: Reviewed and negative Throat: reports: Reviewed and negative Cardiac: reports: Reviewed and negative Respiratory: reports: Reviewed and negative GI: reports: Reviewed and negative : reports: Reviewed and negative Skin: reports: Reviewed and negative Musculoskeletal: reports: Reviewed and negative Neurologic: reports: Focal weakness Psychiatric: reports: Reviewed and negative Endocrine: reports: Reviewed and negative Immunocompromised: reports: Reviewed and negative PD PAST MEDICAL HISTORY - Past Medical History Past Medical History: Yes Cardiovascular: Hypertension, High cholesterol Respiratory: None Neuro: None, Other Endocrine/Autoimmune: Type 2 diabetes GI: GERD : None Psych: None Musculoskeletal: Osteoarthritis, Gout Derm: Eczema Other Past Medical History: Elizondo's Palsy - Past Surgical History Past Surgical History: Yes General: Cholecystectomy, Appendectomy, Other /[employer]: section, Tubal ligation HEENT: Cataracts - Present Medications Home Medications: Ambulatory Orders Medication Instructions Recorded Confirmed Insulin Aspart [Novolog] 0 - 20 unit SQ ACHS 07/11/14 06/14/18 Insulin Glargine [Lantus Solostar] 27 unit SUBQ BID 07/11/14 06/14/18 Metformin HCl 500 mg PO BID 07/11/14 06/14/18 Ascorbic Acid [Vitamin C] 500 mg PO DAILY 12/15/16 06/14/18 Atorvastatin Calcium 80 mg PO QPM 12/15/16 06/14/18 Losartan [Cozaar] 100 mg PO DAILY 12/15/16 06/14/18 Cholecalciferol (Vitamin D3) 1,000 unit PO DAILY 06/14/18 06/14/18 [Vitamin D3] Pioglitazone [Actos] 15 mg PO DAILY 06/14/18 06/14/18 amLODIPine [Norvasc] 5 mg PO ONCE 06/14/18 06/14/18 Gabapentin 300 mg PO 10/11/19 Valacyclovir HCl [Valacyclovir] 1,000 mg PO 10/11/19 Acyclovir 400 mg PO TID 7 Days #21 tablet 11/16/19 predniSONE [Prednisone] 40 mg PO DAILY #10 tablet 11/16/19 - Allergies Allergies/Adverse Reactions: Allergies Allergy/AdvReac Type Severity Reaction Status Date / Time alprazolam AdvReac Severe Unknown Verified 11/16/19 21:19 aspirin AdvReac Intermediate Unknown Verified 11/16/19 21:19 codeine [From Guaifen-C] AdvReac Unknown Verified 11/16/19 21:19 guaifenesin [From Guaifen-C] AdvReac Unknown Verified 11/16/19 21:19 - Social History Does the pt smoke?: No Smoking Status: Never smoker Does the pt drink ETOH?: No Does the pt have substance abuse?: No - Immunizations Immunizations are current?: No - POLST Patient has POLST: No PD ED PE NORMAL - Vitals Vital signs reviewed: Yes - General General: Alert and oriented X 3, No acute distress - HEENT HEENT: Atraumatic, PERRL, EOMI, Ears normal, Moist mucous membranes, Dentition benign, Other (Patient has very mild, nontender soft tissue swelling of her right maxillary area. No distinct abscess pocket is noted. No induration. No gingival edema or tenderness. The patient does have left-sided facial droop, so it is a bit unclear to what degree the patient has facial asymmetry, if any.) - Neck Neck: Supple, no meningeal sign - Cardiac Cardiac: RRR, No murmur - Respiratory Respiratory: Clear bilaterally - Abdomen Abdomen: Normal bowel sounds, Soft, Non tender, Non distended - Derm Derm: Warm and dry - Extremities Extremities: No deformity - Neuro Neuro: Alert and oriented X 3, No sensory deficit, Normal speech, Other (Patient demonstrates left facial droop with involvement of the forehead.No other motor deficits focally. No ataxia. No aphasia.) - Psych Psych: Normal mood, Normal affect Results - Vitals Vitals: Vital Signs - 24 hr 11/16/19 11/16/19 20:36 21:38 Temperature 36.9 C 36.8 C Heart Rate 72 64 Respiratory 18 18 Rate Blood Pressure 174/79 H 146/59 H O2 Saturation 92 97 Oxygen O2 Source Room air PD MEDICAL DECISION MAKING - ED course Complexity details: reviewed old records, reviewed results, re-evaluated patient, considered differential, d/w patient, d/w family ED course: I discussed with the patient that her symptoms are most consistent with Elizondo's palsy. We have discussed the treatment of this, as well as home management of symptoms, timeline for illness, and the usual indications for return. The patient at this point may continue her amoxicillin, and should also take the prednisone and acyclovir. We have discussed that if the prednisone causes the patient's blood sugars to run a little higher than usual, and she may use some of her as needed NovoLog to help manage this. The daughter is present for this conversation. Departure - Departure Disposition: 01 Home, Self Care Clinical Impression: Elizondo's palsy Condition: Good Instructions: ED [place] Palsy Prescriptions: Acyclovir 400 mg PO TID 7 Days #21 tablet predniSONE [Prednisone] 40 mg PO DAILY #10 tablet Discharge Date/Time: 11/16/19 21:43
[2019-11-16 21:39] VITALS: BP 146/59
== END 2019-11-16 21:43 | disposition home or self-care (01) ==
LOC: ED 20:30
DX: G51.0 Bell's palsy (principal); I10 Essential (primary) hypertension; E11.9 Type 2 diabetes mellitus without complications; Z79.4 Long term (current) use of insulin
CPT/HCPCS: 99282; 99284; J7512

== ENCOUNTER 2020-01-28 10:23 | Outpatient (CLI) | payer MEDICARE ==
[2020-01-28 13:41] LABS: CALCIUM 9.3 mg/dL (8.5-10.3); CREATININE 0.9 mg/dL (0.4-1.0)
[2020-01-28 13:43] LABS: HB2 TOTAL 12.9 g/dL; HEMOGLOBIN A1C 0.83 g/dL
== END 2020-01-28 23:59 | disposition home or self-care (01) ==
LOC: LAB.WCP 10:23
PROVIDERS: ATTEND Physician Assistant Medical
DX: E11.9 Type 2 diabetes mellitus without complications (principal)
CPT/HCPCS: 36415; 80048; 83036

== ENCOUNTER 2020-02-19 08:47 | Outpatient (CLI) | payer MEDICARE ==
--- NOTE | 2020-02-26 14:51 | Mammography Report ---
BILATERAL DIGITAL SCREENING MAMMOGRAM WITH EXAGGERATED CC: 02/19/2020 CLINICAL: Routine screening. Comparison is made to exams dated: 01/11/2017 mammogram, 11/27/2015 mammogram, 10/28/2014 mammogram, an d 08/10/2013 mammogram - [facility]. The tissue of both breasts is heterogeneously dense. This may lower the sensitivity of mammography. There is an asymmetry in the left breast posterior depth superior region seen on the mediolateral obl ique view only. No other significant masses, calcifications, or other findings are seen in either breast. IMPRESSION: INCOMPLETE: NEEDS ADDITIONAL IMAGING EVALUATION The asymmetry in the left breast is indeterminate. Additional views with possible ultrasound are rec ommended. This exam was interpreted at Station ID: [id number]. NOTE: For mammograms, a report in lay terms will be sent to the patient. Approximately 15% of breast malignancies will not be visualized mammographically. In the management of a palpable breast mass, a negative mammogram must not discourage biopsy of a clinically suspicious lesion. Electronically Signed By: Prachi Negrete M.D. lk/:02/26/2020 12:12:49 ACR BI-RADS Category 0: Incomplete 3340F PARENCHYMAL PATTERN: (D) - The breast(s) demonstrate(s) heterogeneously dense fibroglandular umesh baird. BI-RADS CATEGORY: (0) - 0 Mammo and US [id number] Immediate follow-up LATERALITY: (B)
== END 2020-02-19 08:48 | disposition home or self-care (01) ==
LOC: DI 08:47
DX: Z12.31 Encounter for screening mammogram for malignant neoplasm of breast (principal); R92.8 Other abnormal and inconclusive findings on diagnostic imaging of breast
CPT/HCPCS: 77067

== ENCOUNTER 2020-03-02 10:04 | Outpatient (CLI) | payer MEDICARE ==
--- NOTE | 2020-03-03 09:43 | Mammography Report ---
UNILATERAL LEFT DIGITAL DIAGNOSTIC MAMMOGRAM 3D/2D: 03/02/2020 CLINICAL: Patient returns today to evaluate a focal asymmetry in the left breast. Comparison is made to exams dated: 02/19/2020 mammogram, 01/11/2017 mammogram, 11/27/2015 mammogram, and 10/28/2014 mammogram - [facility]. The tissue of left breast is heterogeneously de nse. This may lower the sensitivity of mammography. The asymmetry in the left breast middle depth superior region seen on the mediolateral oblique view o nly is no longer seen and likely represents fibroglandular tissue. This is not seen in additional vi ews and is consistent with summation artifact. No other significant masses or calcifications are seen in the breast. IMPRESSION: The previously described asymmetry disperses with additional views and is consistent with summation a rtifact. There is no mammographic evidence of malignancy. Return to annual mammogram screening schedule is recommended. This exam was interpreted at Station ID: [id number]. NOTE: For mammograms, a report in lay terms will be sent to the patient. Approximately 15% of breast malignancies will not be visualized mammographically. In the management of a palpable breast mass, a negative mammogram must not discourage biopsy of a clinically suspicious lesion. Electronically Signed By: Rufus Miller M.D. aty/:03/02/2020 11:37:06 ACR BI-RADS Category 2: Benign Finding(s) 3342F PARENCHYMAL PATTERN: (D) - The breast(s) demonstrate(s) heterogeneously dense fibroglandular umesh baird. BI-RADS CATEGORY: (2) - 2 Mammogram [id number] return to screening LATERALITY: (B)
== END 2020-03-02 10:05 | disposition home or self-care (01) ==
LOC: DI 10:04
PROVIDERS: ATTEND Physician Assistant Medical
DX: Z03.89 Encounter for observation for other suspected diseases and conditions ruled out (principal)

== ENCOUNTER 2020-04-27 07:37 | Outpatient (CLI) | payer MEDICARE ==
[2020-04-27 12:44] LABS: ALBUMIN 3.6 g/dL (3.2-5.5); ALKALINE PHOSPHATASE 73 IU/L (42-121); ALT ALANINE AMINOTRANSFERASE 25 IU/L (10-60); AST ASPARTATE AMINOTRANSFERASE 19 IU/L (10-42); BILIRUBIN,TOTAL 0.6 mg/dL (0.2-1.0); BUN - BLOOD UREA NITROGEN 18 mg/dL (6-20); CALCIUM 9.1 mg/dL (8.5-10.3); CARBON DIOXIDE - CO2 25 mmol/L (21-32); CHLORIDE 104 mmol/L (101-111); CHOL/HDL RATIO 3.3 (<4.4); CHOLESTEROL 179 mg/dL; CREATININE 0.9 mg/dL (0.4-1.0); GLUCOSE 145 mg/dL (70-100); HDL CHOLESTEROL 54 mg/dL; LDL CHOLESTEROL,CALCULATED 101 mg/dL; LDL/HDL RATIO 1.9 (<4.4); SODIUM 136 mmol/L (135-145); TOTAL PROTEIN 7.2 g/dL (6.7-8.2); VLDL CHOLESTEROL 24 mg/dL
[2020-04-27 13:58] LABS: HB2 TOTAL 12.9 g/dL; HEMOGLOBIN A1C 0.72 g/dL; HEMOGLOBIN A1C % 7.3 % (4.6-6.2)
== END 2020-04-27 23:59 | disposition home or self-care (01) ==
LOC: LAB.WCP 07:37
PROVIDERS: ATTEND Physician Assistant Medical
DX: E11.9 Type 2 diabetes mellitus without complications (principal)
CPT/HCPCS: 36415; 80053; 80061; 83036; 83721

== ENCOUNTER 2020-07-30 08:00 | Outpatient (CLI) | payer MEDICARE ==
[2020-07-30 12:10] LABS: ALBUMIN 3.7 g/dL (3.2-5.5); ALBUMIN/GLOBULIN RATIO 1.1 (1.0-2.2); ALKALINE PHOSPHATASE 72 IU/L (42-121); ALT ALANINE AMINOTRANSFERASE 24 IU/L (10-60); AST ASPARTATE AMINOTRANSFERASE 23 IU/L (10-42); BILIRUBIN,TOTAL 0.8 mg/dL (0.2-1.0); BUN - BLOOD UREA NITROGEN 15 mg/dL (6-20); CALCIUM 8.9 mg/dL (8.5-10.3); CARBON DIOXIDE - CO2 22 mmol/L (21-32); CHLORIDE 104 mmol/L (101-111); CHOL/HDL RATIO 3.9 (<4.4); CHOLESTEROL 169 mg/dL; CREATININE 0.7 mg/dL (0.4-1.0); GLUCOSE 151 mg/dL (70-100); HDL CHOLESTEROL 43 mg/dL; LDL CHOLESTEROL,CALCULATED 88 mg/dL; SODIUM 138 mmol/L (135-145); TOTAL PROTEIN 7.2 g/dL (6.7-8.2); VLDL CHOLESTEROL 38 mg/dL
[2020-07-30 12:23] LABS: HEMOGLOBIN A1c% 7.2 % (4.27-6.07)
== END 2020-07-30 23:59 | disposition home or self-care (01) ==
LOC: LAB.WCP 08:00
PROVIDERS: ATTEND Physician Assistant Medical
DX: E11.9 Type 2 diabetes mellitus without complications (principal)
CPT/HCPCS: 36415; 80053; 80061; 83036; 83721

== ENCOUNTER 2020-10-29 08:00 | Outpatient (CLI) | payer MEDICARE ==
[2020-10-29 12:27] LABS: BILIRUBIN,URINE NEGATIVE (NEGATIVE); GLUCOSE, URINE (UA) NEGATIVE (NEGATIVE); KETONES,URINE (UA) NEGATIVE (NEGATIVE); LEUKOCYTE ESTERASE, URINE NEGATIVE (NEGATIVE); NITRITE,URINE NEGATIVE (NEGATIVE); OCCULT BLOOD,URINE NEGATIVE (NEGATIVE); PROTEIN,URINE NEGATIVE (NEGATIVE); UROBILINOGEN,URINE 0.2 (NORMAL) E.U./dL (NORMAL)
[2020-10-29 12:32] LABS: BACTERIA,URINE None Seen /HPF (None Seen); CLARITY,URINE CLEAR (CLEAR); HEMOGLOBIN A1c% 7.2 % (4.27-6.07); RBC,URINE 0-5 /HPF (0-5); SQUAMOUS EPITHELIAL CELL,UR RARE Squamous (<= Few)
[2020-10-29 12:41] LABS: ALBUMIN 3.8 g/dL (3.2-5.5); ALBUMIN/GLOBULIN RATIO 1.1 (1.0-2.2); ALKALINE PHOSPHATASE 72 IU/L (42-121); ALT ALANINE AMINOTRANSFERASE 16 IU/L (10-60); AST ASPARTATE AMINOTRANSFERASE 18 IU/L (10-42); BILIRUBIN,TOTAL 0.5 mg/dL (0.2-1.0); BUN - BLOOD UREA NITROGEN 18 mg/dL (6-20); CALCIUM 8.9 mg/dL (8.5-10.3); CARBON DIOXIDE - CO2 24 mmol/L (21-32); CHLORIDE 106 mmol/L (101-111); CHOL/HDL RATIO 3.8 (<4.4); CHOLESTEROL 177 mg/dL; CREATININE 0.9 mg/dL (0.4-1.0); GLUCOSE 105 mg/dL (70-100); HDL CHOLESTEROL 46 mg/dL; LDL CHOLESTEROL,CALCULATED 101 mg/dL; LDL/HDL RATIO 2.2 (<4.4); TOTAL PROTEIN 7.2 g/dL (6.7-8.2); VLDL CHOLESTEROL 30 mg/dL
== END 2020-10-29 23:59 | disposition home or self-care (01) ==
LOC: LAB.WCP 08:00
PROVIDERS: ATTEND Physician Assistant Medical
DX: E11.9 Type 2 diabetes mellitus without complications (principal); N39.0 Urinary tract infection, site not specified
CPT/HCPCS: 36415; 80053; 80061; 81001; 83036; 83721; 87086

== ENCOUNTER 2021-02-02 08:00 | Outpatient (CLI) | payer MEDICARE ==
[2021-02-02 12:31] LABS: CALCIUM 9.1 mg/dL (8.5-10.3); POTASSIUM 4.2 mmol/L (3.5-5.0)
[2021-02-02 13:29] LABS: ESTIMATED AVERAGE GLUCOSE 177 mg/dL (70-100); HEMOGLOBIN A1c% 7.8 % (4.27-6.07)
== END 2021-02-02 23:59 | disposition home or self-care (01) ==
LOC: LAB.WCP 08:00
PROVIDERS: ATTEND Physician Assistant Medical
DX: E11.9 Type 2 diabetes mellitus without complications (principal)
CPT/HCPCS: 36415; 80048; 83036

== ENCOUNTER 2021-05-04 08:00 | Outpatient (CLI) | payer MEDICARE ==
[2021-05-04 13:40] LABS: ALBUMIN 3.7 g/dL (3.2-5.5); ALKALINE PHOSPHATASE 76 IU/L (42-121); ALT ALANINE AMINOTRANSFERASE 23 IU/L (10-60); AST ASPARTATE AMINOTRANSFERASE 21 IU/L (10-42); BILIRUBIN,TOTAL 0.6 mg/dL (0.2-1.0); BUN - BLOOD UREA NITROGEN 14 mg/dL (6-20); CALCIUM 9.5 mg/dL (8.5-10.3); CARBON DIOXIDE - CO2 23 mmol/L (21-32); CHLORIDE 107 mmol/L (101-111); CHOL/HDL RATIO 5.1 (<4.4); CHOLESTEROL 209 mg/dL; CREATININE 0.9 mg/dL (0.4-1.0); GFR - MDRD 62 (>89); GLUCOSE 189 mg/dL (70-100); HDL CHOLESTEROL 41 mg/dL; LDL CHOLESTEROL,CALCULATED 125 mg/dL; POTASSIUM 4.2 mmol/L (3.5-5.0); SODIUM 142 mmol/L (135-145); TOTAL PROTEIN 7.4 g/dL (6.7-8.2); TRIGLYCERIDES 216 mg/dL; VLDL CHOLESTEROL 43 mg/dL
[2021-05-04 13:43] LABS: MICROALBUMIN,URINE 1.1 mg/dL (0-300.0)
[2021-05-04 14:12] LABS: ESTIMATED AVERAGE GLUCOSE 223 mg/dL (70-100); HEMOGLOBIN A1c% 9.4 % (4.27-6.07)
== END 2021-05-04 23:59 | disposition home or self-care (01) ==
LOC: LAB.WCP 08:00
PROVIDERS: ATTEND Physician Assistant Medical
DX: E11.9 Type 2 diabetes mellitus without complications (principal); E78.5 Hyperlipidemia, unspecified
CPT/HCPCS: 36415; 80053; 80061; 82043; 82570; 83036; 83721

== ENCOUNTER 2021-08-05 08:00 | Outpatient (CLI) | payer MEDICARE ==
[2021-08-05 18:42] LABS: CALCIUM 9.3 mg/dL (8.5-10.3); POTASSIUM 4.6 mmol/L (3.5-5.0)
[2021-08-05 20:54] LABS: ESTIMATED AVERAGE GLUCOSE 255 mg/dL (70-100); HEMOGLOBIN A1c% 10.5 % (4.27-6.07)
== END 2021-08-05 23:59 | disposition home or self-care (01) ==
LOC: LAB.WCP 08:00
PROVIDERS: ATTEND Physician Assistant Medical
DX: E11.9 Type 2 diabetes mellitus without complications (principal)
CPT/HCPCS: 36415; 80048; 83036

== ENCOUNTER 2021-10-22 11:13 | Outpatient (CLI) | payer MEDICARE ==
[2021-10-22 11:40] LABS: CREATININE 0.9 mg/dL (0.4-1.0)
[2021-10-22] MEDS ORDERED: IOVERSOL 320 100 ML VIAL IVP ONE ×2 (12:56→13:32)
--- NOTE | 2021-10-22 14:06 | CT Report ---
PROCEDURE: ANGIO HEAD W/WO INDICATIONS: DOUBLE VISION, 3RD NERVE PALSY CONTRAST: IV CONTRAST: Optiray 320 ml: 80 PO CONTRAST: *NO PO CONTRAST TECHNIQUE: Precontrast 4.5 mm thick angled axial sections acquired from the foramen magnum to the vertex. Afte r the administration of intravenous contrast, 1 mm thick sections acquired through the [place] of Will is. Postcontrast 4.5 mm thick sections then re-acquired from the foramen magnum to the vertex. 3-di mensional cjefefq-fhtzisczl-qzvhtctqwj (MIP) and/or volume rendering reformats were acquired of the c entral intracranial vasculature. For radiation dose reduction, the following was used: automated ex posure control, adjustment of mA and/or kV according to patient size. COMPARISON: None FINDINGS: Image quality: Motion artifact is noted. Anterior circulation: Intracranial internal carotid arteries demonstrate atherosclerotic irregularit y and calcification, with approximately 50% narrowing seen on each side. The flow within the paired anterior cerebral arteries is normal and symmetric. The flow within the middle cerebral arteries is normal and symmetric. The anterior communicating artery is seen. No aneurysms are seen. Posterior circulation: Visualized portions of the vertebral arteries demonstrate normal caliber, and join to form a normal appearing basilar artery. Flow within the posterior cerebral arteries is norm al and symmetric. No aneurysms are seen. CSF spaces: Ventricles are normal in size and shape. Basal cisterns are patent. No extra-axial flu id collections. Brain: No midline shift. No intracranial bleeds or masses. Muñoz-white matter interface appears int act. Skull and face: Calvarium and facial bones appear intact, without suspicious lesions. Sinuses: Visualized sinuses and mastoids are clear. IMPRESSION: Unremarkable intracranial angiogram, without a cause of the patient's presenting symptoms is identifi ed. No aneurysms are seen. If it would be helpful for clinical management decision making, please consider a dedicated brain MRI (orbits protocol, without and with contrast) for further evaluation (assuming that there is no con traindication). Reviewed by: Eladio Cruz MD on 10/22/2021 1:05 PM [facility] Approved by: Eladio Cruz MD on 10/22/2021 1:05 PM [facility] Station ID: [id number]
== END 2021-10-22 11:14 | disposition home or self-care (01) ==
LOC: DI 11:13
PROVIDERS: ATTEND Ophthalmology Neuro-ophthalmology
DX: H49.01 Third [oculomotor] nerve palsy, right eye (principal); H53.2 Diplopia
CPT/HCPCS: 36415; 70496; 82565; Q9967

== ENCOUNTER 2021-10-27 10:08 | Outpatient (CLI) | payer MEDICARE ==
[2021-10-27 12:02] LABS: CREATININE,URINE 258.8 mg/dL; MICROALBUM/CREATININE RATIO,UR 8.9 ug/mg (<30.0); MICROALBUMIN,URINE 2.3 mg/dL (0-300.0)
[2021-10-27 12:49] LABS: THYROID STIMULATING HORMONE 5.32 uIU/mL (0.34-5.60)
[2021-10-27 12:55] LABS: ALBUMIN 3.8 g/dL (3.2-5.5); ALBUMIN/GLOBULIN RATIO 1.1 (1.0-2.2); ALKALINE PHOSPHATASE 82 IU/L (42-121); ALT ALANINE AMINOTRANSFERASE 20 IU/L (10-60); AST ASPARTATE AMINOTRANSFERASE 17 IU/L (10-42); BILIRUBIN,TOTAL 0.6 mg/dL (0.2-1.0); BUN - BLOOD UREA NITROGEN 17 mg/dL (6-20); CALCIUM 9.3 mg/dL (8.5-10.3); CARBON DIOXIDE - CO2 26 mmol/L (21-32); CHLORIDE 104 mmol/L (101-111); CHOL/HDL RATIO 4.6 (<4.4); CHOLESTEROL 183 mg/dL; CREATININE 1.1 mg/dL (0.4-1.0); ESTIMATED AVERAGE GLUCOSE 226 mg/dL (70-100); GFR - MDRD 49 (>89); GLUCOSE 210 mg/dL (70-100); HDL CHOLESTEROL 40 mg/dL; HEMOGLOBIN A1c% 9.5 % (4.27-6.07); LDL CHOLESTEROL,CALCULATED 106 mg/dL; LDL/HDL RATIO 2.7 (<4.4); POTASSIUM 4.2 mmol/L (3.5-5.0); SODIUM 139 mmol/L (135-145); TOTAL PROTEIN 7.3 g/dL (6.7-8.2); TRIGLYCERIDES 184 mg/dL; VLDL CHOLESTEROL 37 mg/dL
== END 2021-10-27 10:09 | disposition home or self-care (01) ==
LOC: LAB.N 10:08
PROVIDERS: ATTEND Physician Assistant Medical
DX: E11.9 Type 2 diabetes mellitus without complications (principal)
CPT/HCPCS: 36415; 80053; 80061; 82043; 82570; 83036; 83721; 84443

== ENCOUNTER 2021-12-24 11:04 | Outpatient (CLI) | payer OTHER, MEDICARE ==
--- NOTE | 2021-12-24 12:03 | DEXA Report ---
PROCEDURE: Dexa Spine and/or Hip INDICATIONS: OSTEOPOROSIS TECHNIQUE: Dual energy x-ray absorptiometry (DXA) was performed on a Dr. Jerry's Smooth Move System. Regions measur ed are the AP Spine, femoral neck, and if needed forearm. COMPARISON: 12/26/2016. FINDINGS: Lumbar Spine: Bone Mineral Density 1.159 g/cm/cm,T score -0.2, normal Left Hip: Bone Mineral Density 0.841 g/cm/cm,T score -1.3, osteopenia Left Femoral Neck: Bone Mineral Density 0.819 g/cm/cm, T score -1.6, osteopenia (T score greater or equal to -1.0: NORMAL) (T score from -1.1 to -2.4: OSTEOPENIA) (T score less than or equal to -2.5 to: OSTEOPOROSIS) Impression: Osteopenia. Bone mineral density is decreased 9.8% in the interval since prior exam obtained 7. Patients with diagnosis of osteoporosis or osteopenia should have regular bone mineral density assess ment. For those eligible for Medicare, routine testing is allowed once every 2 years. Testing frequ ency can be increased for patients who have rapidly progressing disease or for those who are receivin g medical therapy to restore bone mass. Reviewed by: Justina Chanel MD, PhD on 12/24/2021 12:01 PM PDT Approved by: Justina Chanel MD, PhD on 12/24/2021 12:01 PM PDT Station ID: [id number]
== END 2021-12-24 11:05 | disposition home or self-care (01) ==
LOC: DI 11:04
PROVIDERS: ATTEND Internal Medicine
DX: M85.89 Other specified disorders of bone density and structure, multiple sites (principal)

== ENCOUNTER 2022-02-10 10:27 | Outpatient (CLI) | payer MEDICARE ==
[2022-02-10 11:24] VITALS: BP 150/79
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
== END 2022-02-10 10:28 | disposition home or self-care (01) ==
LOC: SC 10:27
PROVIDERS: ATTEND Nurse Practitioner Family
DX: G47.10 Hypersomnia, unspecified (principal); R41.89 Other symptoms and signs involving cognitive functions and awareness; R06.83 Snoring; E66.01 Morbid (severe) obesity due to excess calories; Z68.41 Body mass index [BMI] 40.0-44.9, adult
CPT/HCPCS: 99203; G0463; 99212

== ENCOUNTER 2022-02-18 09:30 | Outpatient (CLI) | payer MEDICARE | END 2022-02-18 09:31 | disposition home or self-care (01) | LOC: SC 09:30 | PROVIDERS: ATTEND Nurse Practitioner Family | DX: G47.33 Obstructive sleep apnea (adult) (pediatric) (principal); R09.02 Hypoxemia | CPT/HCPCS: G0399 ×2; 95806 ==

== ENCOUNTER 2022-03-15 14:48 | Outpatient (CLI) | payer MEDICARE ==
--- NOTE | 2022-03-15 14:36 | SLEEP CARE CONSULTATION ---
Information from patient questionnaire entered by Chemo Smith MA. I have reviewed and concur with the information entered by Chemo Smith MA. This document represents the service I personally performed and the decisions made by , Cynthia Mojica ARNP. History of Present Illness Service Date and Time: 03/15/2022 1400 Initial Kiron Sleepiness Scale score: 13 (01/2022) Current Kiron Sleepiness Scale score: 10 Additional HPI information: GARRICK PAZ returns via video telehealth visit for follow up and results of the recently performed home sleep study. I explained the pathophysiology behind obstructive sleep apnea. We then spent quite a bit of time discussing different treatment options. For mild obstructive sleep apnea, surgery and oral appliance are alternatives to nasal CPAP therapy but in moderate or severe cases, nasal CPAP is the most effective and reliable treatment. Because apnea is primarily in supine position, then positional management therapy could be effective. Methods discussed such as positioning with pillows to prevent supine sleep. I reviewed the impact of weight changes on sleep apnea and strongly recommended losing weight. After some discussion, the patient opted to go with the nasal CPAP therapy. Nasal autoCPAP set at 4-15 cmH20 will be ordered with rationale explained. A manual titration study will be ordered if unable to find optimal pressure with office adjustments. I explained how CPAP machine works and what to expect when using the machine. Using CPAP every night in order to get used to it was emphasized. Patient advised to put CPAP mask on before getting into bed so as not to fall asleep without CPAP. To assist acclimation to CPAP use, it could also be used for a short time during day while reading or watching TV. The patient was instructed to call the CPAP supplier to discuss any mechanical problem that may occur. If the mask given is uncomfortable or is difficult to keep on through the night even with adjustment, contact the CPAP supplier as many will replace with another mask style if notified before 30 days. If snoring or perceives is not getting enough air or too much air from the machine, notify this office. Sleep Study - Results Type of Sleep Study: Home sleep study (F/U HOME STUDY, 02/19/2022 [facility], POS,) Prior sleep studies: No Polysomnography/Home Sleep Study results: Physician Impression: The quality of the study is good. The length of the study is [id number] (< 240 minutes). Please also see the tabulated and graphic data. 1. Obstructive Sleep Apnea-Hypopnea (ICD-10 G47.33), moderate, with an AHI of 19.4/hr and brittany SaO2 of 79%. During the study, the patient had 32 apneas (32 obstructive, 0 central, 0 mixed) and 33 hypopneas. The longest episode lasted 61.0 seconds. The respiratory events occurred slightly more frequently during supine sleep (supine AHI was 27.3 and non-supine, 19.12). 2. Hypoxemia (ICD-10 R09.02), moderate, with the lowest oxygen saturation of 79 % and 8.7 minutes with SaO2 under 90%. Baseline oxygen saturation was normal (Average oxygen saturation was 93%). Allergies and Home Medications Home medication list reviewed: Yes (no changes) Allergy and home medication list: Allergies alprazolam Adverse Reaction (Severe, Verified 02/07/22 12:13) Unknown pt says she does not remember what the reaction was aspirin Adverse Reaction (Intermediate, Verified 02/07/22 12:13) Unknown bleeding codeine [From Guaifen-C] Adverse Reaction (Verified 02/07/22 12:13) Unknown with codeine guaifenesin [From Guaifen-C] Adverse Reaction (Verified 02/07/22 12:13) Unknown with codeine Review of Systems Review of systems same as previous: No (currently has Covid) Physical Exam Vital signs obtained and entered by: CALEB MARTI Height: 5 ft 2 in Weight: 235 lb (per pt report) Body Mass Index: 43.0 BMI Classification: Morbidly Obese Impression and Plan 1. Obstructive Sleep Apnea-Hypopnea Syndrome, moderate, with lowest oxygen saturation of 79%. Obviously this is the cause of the patients symptoms of unrefreshed sleep, and excessive daytime sleepiness. Positive pressure therapy could benefit hypertension and diabetes. As mentioned above, the patient will be started on nasal autoCPAP therapy with pressure set at 4-15 cmH2O. Compliance guidelines also reviewed. A copy of compliance guidelines will be given for reference at check out. Because the apnea is more severe supine, I instructed to avoid sleeping supine using pillow positioning until able to start CPAP use. 2. Hypoxemia, moderate, with the lowest oxygen saturation of 79 % and 8.7 minutes with SaO2 under 90%. Her baseline oxygen saturation was normal with an average oxygen saturation of 93%. * Nasal auto CPAP therapy, pressure at 4-15 cm H2O. * Avoid supine sleep until using CPAP. * The patient is again cautioned about driving until sleepiness completely resolves. * Return one month after CPAP obtained. I will assess response to therapy and compliance at that time. Counseling Topics: Sleeping position, Weight loss health impact Visit Type: Telehealth Video Video Type: Doximity Patient Location: Home Location of Provider: Office Patient agrees and consents to this telehealth visit type: Yes Patient agrees to have their insurance billed: Yes Time Spent with Patient (minutes): 20 Provider Statement: I spent 100% of the Telehealth Video Call with the patient with greater than 50% spent counseling the patient and coordination of care.
== END 2022-03-15 14:49 | disposition home or self-care (01) ==
LOC: SC 14:48
PROVIDERS: ATTEND Nurse Practitioner Family
DX: G47.33 Obstructive sleep apnea (adult) (pediatric) (principal); R09.02 Hypoxemia; E66.01 Morbid (severe) obesity due to excess calories; Z68.41 Body mass index [BMI] 40.0-44.9, adult

== ENCOUNTER 2022-05-24 10:20 | Outpatient (CLI) | payer MEDICARE ==
[2022-05-24 17:32] LABS: BUN - BLOOD UREA NITROGEN 20 mg/dL (6-20); CALCIUM 9.1 mg/dL (8.5-10.3); CARBON DIOXIDE - CO2 25 mmol/L (21-32); CHLORIDE 104 mmol/L (101-111); CHOLESTEROL 164 mg/dL; CREATININE 0.9 mg/dL (0.4-1.0); GFR - MDRD 61 (>89); GLUCOSE 268 mg/dL (70-100); HDL CHOLESTEROL 41 mg/dL; LDL CHOLESTEROL,CALCULATED 80 mg/dL; POTASSIUM 4.3 mmol/L (3.5-5.0); SODIUM 138 mmol/L (135-145); TRIGLYCERIDES 214 mg/dL; VLDL CHOLESTEROL 43 mg/dL
[2022-05-24 19:44] LABS: ESTIMATED AVERAGE GLUCOSE 255 mg/dL (70-100); HEMOGLOBIN A1c% 10.5 % (4.27-6.07)
== END 2022-05-24 10:21 | disposition home or self-care (01) ==
LOC: LAB.N 10:20
PROVIDERS: ATTEND Physician Assistant Medical
DX: E11.9 Type 2 diabetes mellitus without complications (principal)
CPT/HCPCS: 36415; 80048; 80061; 83036; 83721

== ENCOUNTER 2022-05-26 11:17 | Outpatient (CLI) | payer MEDICARE ==
--- NOTE | 2022-05-27 08:05 | Mammography Report ---
BILATERAL DIGITAL SCREENING MAMMOGRAM 3D/2D: 05/26/2022 CLINICAL: Routine screening. Comparison is made to exams dated: 03/02/2020 mammogram, 02/19/2020 mammogram, 01/11/2017 mammogram, and 11/27/2015 mammogram - [facility]. Both breasts are heterogeneously dense, which may obscure small masses (category c / 51-75% glandula r tissue). No significant masses, calcifications, or other findings are seen in either breast. There has been no significant interval change. IMPRESSION: NEGATIVE There is no mammographic evidence of malignancy. A 1 year screening mammogram is recommended. Based on the Tyrer Cuzick model (a risk assessment model) the patients lifetime risk is 6.3% and her 10 year risk is 5.1%. According to the ACR, ACS, and NCCN guidelines, an annual breast MRI exam beka g with mammogram is recommended if the patients lifetime risk is 20% or greater. This exam was interpreted at Station ID: [id number]. NOTE: For mammograms, a report in lay terms will be sent to the patient. Approximately 15% of breast malignancies will not be visualized mammographically. In the management of a palpable breast mass, a negative mammogram must not discourage biopsy of a clinically suspicious lesion. Electronically Signed By: Raheem Fonseca M.D. [facility]:05/26/2022 13:42:10 ACR BI-RADS Category 1: Negative 3341F PARENCHYMAL PATTERN: (D) - The breast(s) demonstrate(s) heterogeneously dense fibroglandular umesh baird. BI-RADS CATEGORY: (1) - 1 RECOMMENDATION: (ANNUAL) - Recommend routine annual screening mammography. [id number] 1 year screening LATERALITY: (B)
== END 2022-05-26 11:18 | disposition home or self-care (01) ==
LOC: DI.N 11:17
DX: Z12.31 Encounter for screening mammogram for malignant neoplasm of breast (principal)

== ENCOUNTER 2022-08-17 10:35 | Outpatient (CLI) | payer MEDICARE ==
[2022-08-17 18:29] LABS: CALCIUM 8.8 mg/dL (8.5-10.3); CREATININE 0.9 mg/dL (0.4-1.0); POTASSIUM 4.3 mmol/L (3.5-5.0)
[2022-08-17 21:02] LABS: ESTIMATED AVERAGE GLUCOSE 260 mg/dL (70-100); HEMOGLOBIN A1c% 10.7 % (4.27-6.07)
== END 2022-08-17 10:36 | disposition home or self-care (01) ==
LOC: LAB.N 10:35
PROVIDERS: ATTEND Physician Assistant Medical
DX: E11.9 Type 2 diabetes mellitus without complications (principal)
CPT/HCPCS: 36415; 80048; 83036

== ENCOUNTER 2022-11-23 09:17 | Outpatient (CLI) | payer MEDICARE ==
[2022-11-23 12:27] LABS: ALBUMIN 3.6 g/dL (3.2-5.5); ALBUMIN/GLOBULIN RATIO 0.9 (1.0-2.2); ALKALINE PHOSPHATASE 65 IU/L (42-121); ALT ALANINE AMINOTRANSFERASE 18 IU/L (10-60); AST ASPARTATE AMINOTRANSFERASE 20 IU/L (10-42); BILIRUBIN,TOTAL 0.5 mg/dL (0.2-1.0); BUN - BLOOD UREA NITROGEN 17 mg/dL (6-20); CALCIUM 9.6 mg/dL (8.5-10.3); CARBON DIOXIDE - CO2 28 mmol/L (21-32); CHLORIDE 107 mmol/L (101-111); CHOL/HDL RATIO 3.1 (<4.4); CHOLESTEROL 162 mg/dL; GFR - MDRD 54 (>89); GLUCOSE 153 mg/dL (70-100); HDL CHOLESTEROL 53 mg/dL; LDL CHOLESTEROL,CALCULATED 88 mg/dL; LDL/HDL RATIO 1.7 (<4.4); POTASSIUM 4.5 mmol/L (3.5-5.0); SODIUM 143 mmol/L (135-145); TOTAL PROTEIN 7.8 g/dL (6.7-8.2); TRIGLYCERIDES 107 mg/dL; VLDL CHOLESTEROL 21 mg/dL
[2022-11-23 12:52] LABS: ESTIMATED AVERAGE GLUCOSE 209 mg/dL (70-100); HEMOGLOBIN A1c% 8.9 % (4.27-6.07)
== END 2022-11-23 09:18 | disposition home or self-care (01) ==
LOC: LAB.N 09:17
PROVIDERS: ATTEND Physician Assistant Medical
DX: E11.9 Type 2 diabetes mellitus without complications (principal)
CPT/HCPCS: 36415; 80053; 80061; 83036; 83721; 85025

== ENCOUNTER 2023-03-01 10:56 | Outpatient (CLI) | payer MEDICARE ==
[2023-03-01 17:51] LABS: CALCIUM 8.8 mg/dL (8.5-10.3); CREATININE 0.8 mg/dL (0.4-1.0); POTASSIUM 4.1 mmol/L (3.5-5.0)
[2023-03-01 20:09] LABS: ESTIMATED AVERAGE GLUCOSE 166 mg/dL (70-100); HEMOGLOBIN A1c% 7.4 % (4.27-6.07)
== END 2023-03-01 10:57 | disposition home or self-care (01) ==
LOC: LAB.N 10:56
PROVIDERS: ATTEND Physician Assistant Medical
DX: E11.9 Type 2 diabetes mellitus without complications (principal)
CPT/HCPCS: 36415; 80048; 83036

== ENCOUNTER 2023-05-31 08:34 | Outpatient (CLI) | payer MEDICARE ==
[2023-05-31 12:44] LABS: ALBUMIN 3.8 g/dL (3.2-5.5); ALBUMIN/GLOBULIN RATIO 1.2 (1.0-2.2); ALKALINE PHOSPHATASE 90 IU/L (42-121); ALT ALANINE AMINOTRANSFERASE 14 IU/L (10-60); AST ASPARTATE AMINOTRANSFERASE 14 IU/L (10-42); BILIRUBIN,TOTAL 0.3 mg/dL (0.2-1.0); BUN - BLOOD UREA NITROGEN 12 mg/dL (6-20); CALCIUM 9.3 mg/dL (8.5-10.3); CARBON DIOXIDE - CO2 24 mmol/L (21-32); CHLORIDE 105 mmol/L (101-111); CHOL/HDL RATIO 3.8 (<4.4); CHOLESTEROL 127 mg/dL; CREATININE 0.9 mg/dL (0.6-1.3); GFR - MDRD 61 (>89); GLUCOSE 152 mg/dL (74-104); HDL CHOLESTEROL 33 mg/dL; LDL CHOLESTEROL,CALCULATED 53 mg/dL; LDL/HDL RATIO 1.6 (<4.4); SODIUM 137 mmol/L (135-145); TRIGLYCERIDES 205 mg/dL (48-352); VLDL CHOLESTEROL 41 mg/dL
[2023-05-31 13:06] LABS: CREATININE,URINE 184.8 mg/dL; MICROALBUM/CREATININE RATIO,UR 8.7 ug/mg (<30.0); MICROALBUMIN,URINE 1.6 mg/dL
[2023-05-31 13:37] LABS: ESTIMATED AVERAGE GLUCOSE 146 mg/dL (70-100); HEMOGLOBIN A1c% 6.7 % (4.27-6.07)
== END 2023-05-31 08:35 | disposition home or self-care (01) ==
LOC: LAB.N 08:34
PROVIDERS: ATTEND Physician Assistant Medical
DX: E11.9 Type 2 diabetes mellitus without complications (principal)
CPT/HCPCS: 36415; 80053; 80061; 82043; 82570; 83036; 83721

== ENCOUNTER 2023-08-30 10:22 | Outpatient (CLI) | payer MEDICARE ==
[2023-08-30 12:35] LABS: CALCIUM 9.7 mg/dL (8.5-10.3); POTASSIUM 4.5 mmol/L (3.5-4.5)
[2023-08-30 12:48] LABS: ESTIMATED AVERAGE GLUCOSE 137 mg/dL (70-100); HEMOGLOBIN A1c% 6.4 % (4.27-6.07)
== END 2023-08-30 10:23 | disposition home or self-care (01) ==
LOC: LAB.N 10:22
PROVIDERS: ATTEND Physician Assistant Medical
DX: E11.9 Type 2 diabetes mellitus without complications (principal)
CPT/HCPCS: 36415; 80048; 83036

== ENCOUNTER 2023-09-07 14:30 | Outpatient (CLI) | payer MEDICARE ==
--- NOTE | 2023-09-08 12:26 | Mammography Report ---
BILATERAL DIGITAL SCREENING MAMMOGRAM: 09/07/2023 CLINICAL: Routine screening. Comparison is made to exams dated: 05/26/2022 mammogram, 03/02/2020 mammogram, 02/19/2020 mammogram, 01/11 mammogram, 11/27/2015 mammogram, and 10/28/2014 mammogram - [facility]. Both breasts are heterogeneously dense, which may obscure small masses (category c / 51-75% glandular tissue). No significant masses, calcifications, or other findings are seen in either breast. There has been no significant interval change. IMPRESSION: NEGATIVE There is no mammographic evidence of malignancy. A 1 year screening mammogram is recommended. Based on the Tyrer Cuzick model (a risk assessment model) the patients lifetime risk is 5.8% and her 10 year risk is 5.3%. According to the ACR, ACS, and NCCN guidelines, an annual breast MRI exam beka g with mammogram is recommended if the patients lifetime risk is 20% or greater. This exam was interpreted at Station ID: [id number]. NOTE: For mammograms, a report in lay terms will be sent to the patient. Approximately 15% of breast malignancies will not be visualized mammographically. In the management of a palpable breast mass, a negative mammogram must not discourage biopsy of a clinically suspicious lesion. Electronically Signed By: Ann Spain M.D., PH.D eb/:09/07/2023 22:39:02 letter sent: No_Letter ACR BI-RADS Category 1: Negative 3341F PARENCHYMAL PATTERN: (D) - The breast(s) demonstrate(s) heterogeneously dense fibroglandular umesh baird. BI-RADS CATEGORY: (1) - 1 Mammogram [id number] 1 year screening LATERALITY: (B)
== END 2023-09-07 14:31 | disposition home or self-care (01) ==
LOC: DI.N 14:30
DX: Z12.31 Encounter for screening mammogram for malignant neoplasm of breast (principal); R92.333 Mammographic heterogeneous density, bilateral breasts

== ENCOUNTER 2023-11-29 08:05 | Outpatient (CLI) | payer MEDICARE ==
[2023-11-29 11:50] LABS: ESTIMATED AVERAGE GLUCOSE 134 mg/dL (70-100); HEMOGLOBIN A1c% 6.3 % (4.27-6.07)
[2023-11-29 13:01] LABS: ALBUMIN/GLOBULIN RATIO 1.2 (1.0-2.2); ALKALINE PHOSPHATASE 90 IU/L (42-121); ALT ALANINE AMINOTRANSFERASE 13 IU/L (10-60); AST ASPARTATE AMINOTRANSFERASE 15 IU/L (10-42); BILIRUBIN,TOTAL 0.4 mg/dL (0.2-1.0); BUN - BLOOD UREA NITROGEN 16 mg/dL (6-20); CALCIUM 9.4 mg/dL (8.5-10.3); CARBON DIOXIDE - CO2 28 mmol/L (21-32); CHLORIDE 105 mmol/L (101-111); CHOL/HDL RATIO 3.1 (<4.4); CHOLESTEROL 123 mg/dL; GFR - MDRD 54 (>89); GLUCOSE 105 mg/dL (74-104); HDL CHOLESTEROL 40 mg/dL; LDL CHOLESTEROL,CALCULATED 53 mg/dL; LDL/HDL RATIO 1.3 (<4.4); POTASSIUM 4.2 mmol/L (3.5-4.5); SODIUM 139 mmol/L (135-145); TOTAL PROTEIN 7.4 g/dL (6.4-8.9); TRIGLYCERIDES 150 mg/dL (48-352); VLDL CHOLESTEROL 30 mg/dL
== END 2023-11-29 08:06 | disposition home or self-care (01) ==
LOC: LAB.N 08:05
PROVIDERS: ATTEND Physician Assistant Medical
DX: E11.9 Type 2 diabetes mellitus without complications (principal)
CPT/HCPCS: 36415; 80053; 80061; 83036; 83721

== ENCOUNTER 2024-02-28 08:48 | Outpatient (CLI) | payer MEDICARE ==
[2024-02-28 12:45] LABS: CALCIUM 9.7 mg/dL (8.5-10.3); POTASSIUM 4.3 mmol/L (3.5-4.5)
[2024-02-28 13:00] LABS: ESTIMATED AVERAGE GLUCOSE 120 mg/dL (70-100); HEMOGLOBIN A1c% 5.8 % (4.27-6.07)
== END 2024-02-28 08:49 | disposition home or self-care (01) ==
LOC: LAB.N 08:48
PROVIDERS: ATTEND Physician Assistant Medical
DX: E11.9 Type 2 diabetes mellitus without complications (principal)
CPT/HCPCS: 36415; 80048; 83036

== ENCOUNTER 2024-06-11 11:59 | Outpatient (CLI) | payer MEDICARE ==
[2024-06-11 18:29] LABS: ALBUMIN/GLOBULIN RATIO 1.2 (1.0-2.2); BILIRUBIN,TOTAL 0.6 mg/dL (0.2-1.0); CALCIUM 9.4 mg/dL (8.5-10.3); CREATININE 1.1 mg/dL (0.6-1.3); POTASSIUM 4.4 mmol/L (3.5-4.5); TOTAL PROTEIN 7.3 g/dL (6.4-8.9)
[2024-06-11 18:39] LABS: THYROID STIMULATING HORMONE 1.64 uIU/mL (0.34-5.60)
[2024-06-11 22:10] LABS: ESTIMATED AVERAGE GLUCOSE 143 mg/dL (70-100); HEMOGLOBIN A1c% 6.6 % (4.27-6.07)
== END 2024-06-11 12:00 | disposition home or self-care (01) ==
LOC: LAB.N 11:59
PROVIDERS: ATTEND Physician Assistant Medical
DX: E11.9 Type 2 diabetes mellitus without complications (principal)
CPT/HCPCS: 36415; 80053; 83036; 84443